=== PATIENT | female | born 1955 | race Caucasian/White ===

== ENCOUNTER 2016-06-11 12:02 | Emergency (ER) | payer OTHER ==
[~2016-06-11] VITALS: Ht 162.6 cm; Wt 97.7 kg
[~2016-06-11 12:02] MED LIST: ASPEC325 PO; BUPR-79 PO; CHOL100010 PO; CYM/30 PO; FRRG PO; GLC500 PO; IBUP-1105 PO; LISI40TA PO; PRENTAB26 PO
[2016-06-11 12:09] VITALS: TEMP 36.6; Ht 162.6 cm; Wt 97.7 kg
[2016-06-11] MEDS ORDERED: SODIUM CHLORIDE 0.9% 1000ML 1,000 ML IV STA (13:06)
[2016-06-11] MEDS ORDERED: ONDANSETRON INJ 2 MG/ML 2 ML VIAL IV STA (13:06)
[2016-06-11] MEDS ORDERED: HYDROmorphone INJ 1 MG/ML SYR IV STA (13:06)
[2016-06-11] MEDS ORDERED: KETOROLAC TROMETHAMINE 30 MG/ML VIAL IV STA (13:06)
[2016-06-11] MEDS ORDERED: CHOL100010 PO (13:15)
[2016-06-11] MEDS ORDERED: GLC/500 PO (13:15)
[2016-06-11 13:36] LABS: BASO % 0.3 %; BASO ABS # 0.03 K/uL (0-0.2); COMPLETE YES; EOS % 1.3 %; HEMATOCRIT 42.7 % (37-47); IG% 0.2 %; LYMPH % 24.2 %; LYMPH ABS # 2.38 K/uL (1.2-3.4); MEAN CELL VOLUME 83.4 fL (80-100); MEAN CORPUSCULAR HEMOGLOBIN 28.3 pg (25-34); MEAN PLATELET VOLUME 10.3 fL (7.4-10.4); MONO % 5.1 %; NEUT % 68.9 %; PLATELET COUNT 380 K/uL (130-400); RED BLOOD COUNT 5.12 M/uL (4.2-5.4); WHITE BLOOD COUNT 9.83 K/uL (4.8-10.8)
--- NOTE | 2016-06-11 13:36 | DIAGNOSTIC IMAGING REPORT ---
CHEST ONE VIEW PORTABLE CLINICAL HISTORY: epigastric pain COMPARISON STUDY: 09/11/2015 FINDINGS: The cardiac and mediastinal contours are normal. There is no evidence of focal pulmonary consolidation. There is no evidence of failure. No pleural effusions are visualized.[ There is no free intraperitoneal air. IMPRESSION: No active disease in the chest. Electronically signed by: Jose Willson M.D. 06/11/2016 1:35 PM Dictated Date/Time: 06/11/2016 1:34 PM
[2016-06-11 13:42] LABS: ALT/SGPT 23 U/L (12-78); AST/SGOT 11 U/L (15-37); BLOOD UREA NITROGEN 21 mg/dl (7-18); BUN/CREATININE RATIO 25.5 (10-20); CALCIUM 9.7 mg/dl (8.5-10.1); CARBON DIOXIDE 23 mmol/L (21-32); CHLORIDE 106 mmol/L (98-107); CREATININE 0.83 mg/dl (0.60-1.20); GLUCOSE 118 mg/dl (70-99); POTASSIUM 3.9 mmol/L (3.5-5.1); SODIUM 142 mmol/L (136-145)
[2016-06-11 13:48] LABS: ALKALINE PHOSPHATASE 103 U/L (45-117)
[2016-06-11] MEDS ORDERED: OPTIRAY 320 IV PRN (16:00)
--- NOTE | 2016-06-11 16:29 | DIAGNOSTIC IMAGING REPORT ---
CT ABD/PELVIS IV AND ORAL CONT CLINICAL HISTORY: epigastric pain COMPARISON STUDY: 11/16/2013 TECHNIQUE: Following the IV administration of 116 mL of Optiray-320, CT scan of the abdomen and pelvis was performed from the lung bases to the proximal femurs. Images are reviewed in the axial, sagittal, and coronal planes. IV contrast was administered without complication. CT DOSE: 1004.11 mGy.cm FINDINGS: Lower chest: The heart is enlarged. There are bibasal or groundglass opacities, likely atelectatic. Liver: The contrast-enhanced liver is normal in size, contour, and attenuation. There is no intrahepatic biliary ductal dilatation. The hepatic veins and portal veins are patent. Gallbladder: Surgically absent Spleen: Normal in size and attenuation. Pancreas: Unremarkable. Adrenal glands: Unremarkable. Kidneys: There is a 14 mm lower pole left renal cyst similar to the preceding study. There is no hydronephrosis. There is also a 5 mm cortical cyst involving the mid to upper pole of the left kidney Bowel: There are no transition zones indicate bowel obstruction. There are no findings to indicate acute appendicitis. There are no findings to indicate acute diverticulitis. There is mild fecal retention. There is moderate gastric antral wall thickening. Endoscopic follow-up is recommended. Peritoneum: There is no intraperitoneal free air or abdominal ascites. There is a tiny fat-containing ventral hernia Vasculature: The abdominal aorta is normal in course and caliber. Adenopathy: None. Pelvic viscera: The uterus is surgically absent. Skeletal structures: There is a total right hip arthroplasty. No destructive lesions are visualized. IMPRESSION: 1. No evidence of bowel obstruction. No evidence of free air 2. No evidence of acute appendicitis. No evidence of acute diverticulitis 3. Nonspecific gastric antral wall thickening. Given the history of epigastric pain, endoscopic follow-up should be considered in follow-up 4. Tiny fat-containing ventral hernia. Electronically signed by: Jose Willson M.D. 06/11/2016 4:28 PM Dictated Date/Time: 06/11/2016 4:22 PM
--- NOTE | 2016-06-11 16:31 | EMERGENCY ROOM VISIT NOTE ---
History Report prepared by Oanh: Yuri Hidalgo Under the Supervision of: Dr. Alisson Dwyer M.D. First contact with patient: 12:50 Chief Complaint: ABDOMINAL PAIN Stated Complaint: SEVERE STOMACH PAIN Nursing Triage Summary: Abd pain since Friday, off and on, nausea/vomiting. Denies diarrhea. History of Present Illness The patient is a 60 year old female who presents to the Emergency Room with complaints of persistent abdominal pain the past few mornings beginning about 2 days ago. She describes her pain as "hard and bloated", and notes it feels like when she would get gallbladder attacks. She reports having vomiting, and episodes of chest tightness which resolve on their own. She notes her pain is worsened with raising her legs up. The patient reports a history of a cholecystectomy, 2 C-sections, a hysterectomy, appendectomy, hip replacement, and 2 knee replacements. Source of History: patient Onset: about 2 days ago Position: abdomen Quality: other ("hard and bloated") Timing: other (persistent) Modifying Factors (Worsening): other (raising her legs up) Associated Symptoms: + chest pain (tightness episodes which self-resolve), + vomiting Review of Systems See HPI for pertinent positives & negatives. A total of 10 systems reviewed and were otherwise negative. Past Medical & Surgical Medical Problems: (1) Anxiety disorder (2) Benign essential hypertension (3) Body mass index 30+ - obesity (4) Depression (5) Diabetes mellitus (6) Gastroesophageal reflux disease (7) Hypercholesterolemia (8) Right Hip DJD (9) Sleep apnea Family History No pertinent family history stated. Social History Smoking Status: Former Smoker Marital Status: single Current/Historical Medications Scheduled Aspirin (Aspirin), 325 MG PO BID Bupropion (Wellbutrin Sr), 150 MG PO QAM Cholecalciferol (Vitamin D), 1,000 INTER.UNIT PO DAILY Duloxetine HCl (Cymbalta), 1 CAP PO QAM Ibuprofen (Ibuprofen), 600 MG PO TID Lisinopril (Zestril), 40 MG PO QAM Metformin Hcl (Glucophage), 500 MG PO BID Allergies Coded Allergies: Acetaminophen (Verified Allergy, Intermediate, nightmares, itching, 06/11/16 ) Morphine (Verified Allergy, Intermediate, itching, 06/11/16) Oxycodone (Verified Allergy, Intermediate, nightmares, itching, 06/11/16) Tramadol (Verified Allergy, Intermediate, itching, 06/11/16) Physical Exam Vital Signs Date Time Temp Pulse Resp B/P Pulse Ox O2 Delivery O2 Flow Rate FiO2 06/11/16 16:01 63 18 132/78 97 Room Air 06/11/16 14:52 61 18 127/69 98 Room Air 06/11/16 14:03 65 18 123/71 95 Room Air 06/11/16 12:09 36.6 80 18 145/88 94 Room Air Pain Rating (0-10): 8.0 Physical Exam CONSTITUTIONAL: Mild painful distress. HEENT: No icterus, moist mucous membranes NECK: No meningismus, trachea is midline. CARDIOVASCULAR: Regular rate, normal perfusion RESPIRATORY: Unlabored breathing. Clear to auscultation. GASTROINTESTINAL: Moderate epigastric tenderness. GENITOURINARY: No flank tenderness MUSCULOSKELETAL: Full range of motion NEUROLOGIC: No acute gross focal deficits. PSYCHIATRIC: Normal affect SKIN: Normal for ethnicity. Medical Decision & Procedures ER Provider Diagnostic Interpretation: Radiology results as stated below per my review and radiologist interpretation. CHEST ONE VIEW PORTABLE FINDINGS: The cardiac and mediastinal contours are normal. There is no evidence of focal pulmonary consolidation. There is no evidence of failure. No pleural effusions are visualized.[ There is no free intraperitoneal air. IMPRESSION: No active disease in the chest. Electronically signed by: Jose Willson M.D. 06/11/2016 1:35 PM Dictated Date/Time: 06/11/2016 1:[address] ABD/PELVIS IV AND ORAL CONT FINDINGS: Lower chest: The heart is enlarged. There are bibasal or groundglass opacities, likely atelectatic. Liver: The contrast-enhanced liver is normal in size, contour, and attenuation. There is no intrahepatic biliary ductal dilatation. The hepatic veins and portal veins are patent. Gallbladder: Surgically absent Spleen: Normal in size and attenuation. Pancreas: Unremarkable. Adrenal glands: Unremarkable. Kidneys: There is a 14 mm lower pole left renal cyst similar to the preceding study. There is no hydronephrosis. There is also a 5 mm cortical cyst involving the mid to upper pole of the left kidney Bowel: There are no transition zones indicate bowel obstruction. There are no findings to indicate acute appendicitis. There are no findings to indicate acute diverticulitis. There is mild fecal retention. There is moderate gastric antral wall thickening. Endoscopic follow-up is recommended. Peritoneum: There is no intraperitoneal free air or abdominal ascites. There is a tiny fat-containing ventral hernia Vasculature: The abdominal aorta is normal in course and caliber. Adenopathy: None. Pelvic viscera: The uterus is surgically absent. Skeletal structures: There is a total right hip arthroplasty. No destructive lesions are visualized. IMPRESSION: 1. No evidence of bowel obstruction. No evidence of free air 2. No evidence of acute appendicitis. No evidence of acute diverticulitis 3. Nonspecific gastric antral wall thickening. Given the history of epigastric pain, endoscopic follow-up should be considered in follow-up 4. Tiny fat-containing ventral hernia. Electronically signed by: Jose Willson M.D. 06/11/2016 4:28 PM Dictated Date/Time: 06/11/2016 4:22 PM Laboratory Results 06/11/16 12:30 Red Blood Count 5.12, Mean Corpuscular Volume 83.4, Mean Corpuscular Hemoglobin 28.3, Mean Corpuscular Hemoglobin Concent 34.0, Mean Platelet Volume 10.3, Neutrophils (%) (Auto) 68.9, Lymphocytes (%) (Auto) 24.2, Monocytes (%) (Auto) 5.1, Eosinophils (%) (Auto) 1.3, Basophils (%) (Auto) 0.3, Neutrophils # (Auto) 6.77, Lymphocytes # (Auto) 2.38, Monocytes # (Auto) 0.50, Eosinophils # (Auto) 0.13, Basophils # (Auto) 0.03 06/11/16 12:30 Test 06/11/16 12:30 White Blood Count 9.83 K/uL (4.8-10.8) Red Blood Count 5.12 M/uL (4.2-5.4) Hemoglobin 14.5 g/dL (12.0-16.0) Hematocrit 42.7 % (37-47) Mean Corpuscular Volume 83.4 fL (80-100) Mean Corpuscular Hemoglobin 28.3 pg (25-34) Mean Corpuscular Hemoglobin Concent 34.0 g/dl (32-36) Platelet Count 380 K/uL (130-400) Mean Platelet Volume 10.3 fL (7.4-10.4) Neutrophils (%) (Auto) 68.9 % Lymphocytes (%) (Auto) 24.2 % Monocytes (%) (Auto) 5.1 % Eosinophils (%) (Auto) 1.3 % Basophils (%) (Auto) 0.3 % Neutrophils # (Auto) 6.77 K/uL (1.4-6.5) Lymphocytes # (Auto) 2.38 K/uL (1.2-3.4) Monocytes # (Auto) 0.50 K/uL (0.11-0.59) Eosinophils # (Auto) 0.13 K/uL (0-0.5) Basophils # (Auto) 0.03 K/uL (0-0.2) RDW Standard Deviation 39.5 fL (36.4-46.3) RDW Coefficient of Variation 13.1 % (11.5-14.5) Immature Granulocyte % (Auto) 0.2 % Immature Granulocyte # (Auto) 0.02 K/uL (0.00-0.02) Anion Gap 13.0 mmol/L (3-11) Est Creatinine Clear Calc Drug Dose 79.8 ml/min Estimated GFR () 87.6 Estimated GFR (Non- 75.6 BUN/Creatinine Ratio 25.5 (10-20) Calcium Level 9.7 mg/dl (8.5-10.1) Magnesium Level 2.0 mg/dl (1.8-2.4) Total Bilirubin 0.4 mg/dl (0.2-1) Direct Bilirubin < 0.1 mg/dl (0-0.2) Aspartate Amino Transf (AST/SGOT) 11 U/L (15-37) Alanine Aminotransferase (ALT/SGPT) 23 U/L (12-78) Alkaline Phosphatase 103 U/L (45-117) Troponin I < 0.015 ng/ml (0-0.045) Total Protein 7.5 gm/dl (6.4-8.2) Albumin 4.1 gm/dl (3.4-5.0) Lipase 157 U/L (73-393) Labs reviewed by ED physician. Medications Administered Medications (Trade) Dose Ordered Sig/Corey Route Start Time Stop Time Status Last Admin Dose Admin Sodium Chloride (Nss 1000ml) 1,000 ml @ 0 mls/hr Q0M STAT IV 06/11/16 13:06 06/11/16 13:08 DC 06/11/16 13:25 999 MLS/HR Hydromorphone HCl (Dilaudid Inj) 1 mg PRN STAT IV 06/11/16 13:06 06/11/16 13:08 DC 06/11/16 13:27 1 MG Ketorolac Tromethamine (Toradol Inj) 15 mg NOW STAT IV 06/11/16 13:06 06/11/16 13:08 DC 06/11/16 13:27 15 MG Ondansetron HCl (Zofran Inj) 4 mg NOW STAT IV 06/11/16 13:06 06/11/16 13:08 DC 06/11/16 13:26 4 MG ECG Indication: abdominal pain Rate (beats per minute): 68 Rhythm: normal sinus Findings: no ectopy, other (normal axis) ED Course 1304: Past medical records reviewed. The patient was evaluated in room B5. A complete history and physical examination was performed. 1306: Ordered Zofran Inj 4 mg IV, Toradol Inj 15 mg IV, Dilaudid Inj 1 mg IV, and NSS 1,000 ml @ 0 mls/hr Wide Open IV. 1735: Upon reexamination the patient is doing well. I discussed results and treatment plan with the patient. She verbalizes agreement and understanding. The patient is ready for discharge. Medical Decision Differentials include pancreatitis, and obstruction. 60-year-old presents into the emergency room for evaluation of the predominant upper abdominal discomfort, especially at night. Evaluation negative for acute disease. She is advised take Pepcid daily and follow-up with her primary doctor and return emergency room for worsening worrisome symptoms. Impression Primary Impression: Abdominal pain Scribe Attestation The scribe's documentation has been prepared under my direction and personally reviewed by me in its entirety. I confirm that the note above accurately reflects all work, treatment, procedures, and medical decision making performed by me. Departure Information Dispostion Home / Self-Care Referrals Yoni Lara M.D. (PCP) Patient Instructions Abdominal Pain - [facility], My [facility] Additional Instructions Pepcid once daily. Follow-up with your doctor.
[2016-06-11 17:48] VITALS: BP 133/93; PULSE 68; O2SAT 92
== END 2016-06-11 17:49 | disposition home or self-care (01) ==
LOC: C.EDB 12:07
DX: R10.10 Upper abdominal pain, unspecified (principal); I10 Essential (primary) hypertension; E11.9 Type 2 diabetes mellitus without complications; E78.00 Pure hypercholesterolemia, unspecified; K21.9 Gastro-esophageal reflux disease without esophagitis; F32.9 Major depressive disorder, single episode, unspecified; F41.9 Anxiety disorder, unspecified; G47.30 Sleep apnea, unspecified; Z87.891 Personal history of nicotine dependence; Z79.82 Long term (current) use of aspirin; Z79.84 Long term (current) use of oral hypoglycemic drugs; Z79.899 Other long term (current) drug therapy; Z88.5 Allergy status to narcotic agent; Z88.6 Allergy status to analgesic agent; Z88.8 Allergy status to other drugs, medicaments and biological substances

== ENCOUNTER → 2016-07-09 | Outpatient (CLI) | payer OTHER ==
[~2016-07-09] MED LIST changes: -FRRG PO; +GLC/500 PO; -GLC500 PO; -PRENTAB26 PO
--- NOTE | 2016-07-10 07:39 | MAMMOGRAPHY REPORT ---
BILATERAL DIGITAL SCREENING MAMMOGRAM TOMOSYNTHESIS WITH CAD: 07/09/2016 CLINICAL HISTORY: Routine screening examination. TECHNIQUE: Breast tomosynthesis in addition to standard 2D mammography was performed. Current study was also evaluated with a Computer Aided Detection (CAD) system. COMPARISON: Comparison is made to exams dated: 10/18/2013 mammogram, 12/08/2009 mammogram - [facility], and 12/07/2008. BREAST COMPOSITION: There are scattered areas of fibroglandular density in both breasts. FINDINGS: There is stable nodularity throughout the breasts. Scattered stable benign-appearing roun ded punctate microcatheter indications. No new suspicious mass, architectural distortion or cluster of microcalcifications is seen. IMPRESSION: ACR BI-RADS CATEGORY 1: NEGATIVE There is no mammographic evidence of malignancy. A 1 year screening mammogram is recommended. The p atient will receive written notification of the results. Approximately 10% of breast cancers are not detected with mammography. A negative mammographic repor t should not delay biopsy if a clinically suggestive mass is present. Bibiana Whaley M.D. ay/:07/09/2016 17:25:01 Control Systems Eng: Meghan CRUMP(Chava)(Yolie), [facility] letter sent: Normal 1/2 BI-RADS Code: ACR BI-RADS Category 1: Negative
== END | disposition home or self-care (01) ==
LOC: C.MAMM 13:37
PROVIDERS: ATTEND Internal Medicine
DX: Z12.31 Encounter for screening mammogram for malignant neoplasm of breast (principal)

== ENCOUNTER → 2017-01-27 | Outpatient (CLI) | payer OTHER ==
[2017-01-27 13:25] LABS: BASO % 0.7 %; BASO ABS # 0.05 K/uL (0-0.2); COMPLETE YES; EOS % 2.8 %; HEMATOCRIT 41.2 % (37-47); IG% 0.1 %; LYMPH % 40.4 %; MEAN CELL VOLUME 84.6 fL (80-100); MEAN CORPUSCULAR HEMOGLOBIN 27.7 pg (25-34); MEAN CORPUSCULAR HGB CONC 32.8 g/dl (32-36); MEAN PLATELET VOLUME 10.2 fL (7.4-10.4); MONO % 6.3 %; NEUT % 49.7 %; PLATELET COUNT 401 K/uL (130-400); RED BLOOD COUNT 4.87 M/uL (4.2-5.4); WHITE BLOOD COUNT 7.42 K/uL (4.8-10.8)
[2017-01-27 13:54] LABS: ALB/GLOB RATIO 1.1 (0.9-2); ALKALINE PHOSPHATASE 99 U/L (45-117); ALT/SGPT 18 U/L (12-78); AST/SGOT 13 U/L (15-37); BLOOD UREA NITROGEN 28 mg/dl (7-18); BUN/CREATININE RATIO 28.9 (10-20); CALCIUM 9.3 mg/dl (8.5-10.1); CARBON DIOXIDE 26 mmol/L (21-32); CHLORIDE 106 mmol/L (98-107); CHOLESTEROL 221 mg/dl (0-200); CHOLESTEROL/HDL RATIO 5.4; CREATININE 0.97 mg/dl (0.60-1.20); GLUCOSE 109 mg/dl (70-99); HDL CHOLESTEROL 41 mg/dl; SODIUM 140 mmol/L (136-145)
[2017-01-27 14:05] LABS: LDL CHOLESTEROL CALCULATED 139 mg/dl; TRIGLYCERIDES 207 mg/dl (0-150); VERY LOW DENSITY LIPOPROT CALC 41 mg/dl
[2017-01-28 07:06] LABS: ESTIMATED AVERAGE GLUCOSE 114 mg/dl; HA1C FLAG Normal (Normal)
--- NOTE | 2017-02-04 07:13 | CODING QUERY MEDICAL NECESSITY ---
SUPPORTING DIAGNOSIS NEEDED Dr. Lara, A supporting diagnosis is required for the test/procedure performed on this patient in order for us to be reimbursed by the patient's insurance. Please provide a supporting diagnosis for the following test/procedure listed below next to the test name along with your signature. *If there is no additional diagnosis for this patient that would support the following test/procedure please document that below next to the test/procedure. Test(s)/Procedure(s) that require a supporting diagnosis: * 16940 GLYCATED HEMOGLOBIN DIAGNOSIS: DATE OF SERVICE: 01/27/17 Provider Signature: Date: Thank you Cali Lezama [facility] Information Management Once completed, please kindly fax back to [phone] For questions please call [phone]
== END | disposition home or self-care (01) ==
LOC: C.LABBC 09:32
PROVIDERS: ATTEND Internal Medicine
DX: E21.3 Hyperparathyroidism, unspecified (principal)

== ENCOUNTER → 2017-07-10 | Outpatient (CLI) | payer OTHER ==
--- NOTE | 2017-07-10 15:06 | MAMMOGRAPHY REPORT ---
BILATERAL DIGITAL SCREENING MAMMOGRAM TOMOSYNTHESIS WITH CAD: 07/10/2017 TECHNIQUE: Breast tomosynthesis in addition to standard 2D mammography was performed. Current study was also evaluated with a Computer Aided Detection (CAD) system. COMPARISON: Comparison is made to exams dated: 07/09/2016 mammogram, 07/05/2015 ultrasound, 07/05/2015 breann mogram, 10/18/2013 mammogram, 12/13/2009 mammogram, and 12/13/2009 ultrasound - [facility]. BREAST COMPOSITION: There are scattered areas of fibroglandular density in both breasts. FINDINGS: No suspicious masses, calcifications, or areas of architectural distortion are noted in ei ther breast. There has been no significant interval change compared to prior exams. IMPRESSION: ACR BI-RADS CATEGORY 1: NEGATIVE There is no mammographic evidence of malignancy. A 1 year screening mammogram is recommended. The pa tient will receive written notification of the results. Approximately 10% of breast cancers are not detected with mammography. A negative mammographic report should not delay biopsy if a clinically suggestive mass is present. Pili Ross M.D. ah/:07/10/2017 14:43:36 Spinning Doffer: Fátima NDIAYE)(Yolie), [facility] letter sent: Normal 1/2 BI-RADS Code: ACR BI-RADS Category 1: Negative
== END | disposition home or self-care (01) ==
LOC: C.MAMM 13:17
PROVIDERS: ATTEND Internal Medicine
DX: Z12.31 Encounter for screening mammogram for malignant neoplasm of breast (principal)

== ENCOUNTER → 2017-09-17 | Day surgery (SDC) | payer OTHER ==
[2017-08-26 16:23] VITALS: Ht 162.6 cm; Wt 95.5 kg
[~2017-09-17] VITALS: Ht 162.6 cm; Wt 95.5 kg
[~2017-09-17] MED LIST changes: +500ML BSS 0.3ML EPI 1:1000PF IRRIG ONE; +ACETAMINOPHEN 325 MG TAB PO PRN; +AMVISC PLUS 0.8ML SYRINGE INT OCU ONE; -ASPEC325 PO; +ATROPINE SULFATE 0.1 MG/ML 5ML SYR IV PRN; +ATV5X PO; +BSS FLUSH ONE; -CHOL100010 PO; +CHOL500015 PO; +ENDOCOAT 0.85ML SYRINGE INT OCU ONE; +EpINEphrine INJ 1MG/ML AMP 1 MG/ML AMP ONE; +LACTATED RINGER'S 1000ML 500 ML IV SCH; +LIDOCAINE 4% OP SOLN DROP CHARGE ONE; +LIDOCAINE 4% OP SOLN DROP CHARGE OPL SCH; +LIDOCAINE HCL 1% MPF 2 ML VIAL ONE; +MIDAZOLAM HCL 1 MG/ML 2ML VIAL ONE; +MIX: 4ML BSS 1ML EPI 1:1000 PF TOP ONE; +MOXIFLOXACIN OPH SOLN PER DROP CHARGE ONE; +POVIDONE-IODINE OP SOLN 30 ML BTL ONE; +PROPARACAINE 0.5% OP SOLN PER DROP CHARGE OPL SCH; +TOBRAMYCIN/DEXAMETHASONE OPH OINT PER APPLN CHARGE ONE
[2017-09-17] MEDS: PHENYLEPHRINE HCL 10% OP SOLN PER DROP CHARGE OPL SCH ×3 (06:38→06:48)
[2017-09-17] MEDS: TROPICAMIDE 1% OP SOLN PER DROP CHARGE OPL SCH ×3 (06:39→06:49)
[2017-09-17] MEDS: CYCLOPENTOLATE HCL 1% OP SOLN PER DROP CHARGE OPL SCH ×3 (06:40→06:50)
[2017-09-17] MEDS: MOXIFLOXACIN OPH SOLN PER DROP CHARGE OPL SCH ×3 (06:41→06:51)
--- NOTE | 2017-09-17 06:42 | History & Physical Bridge - SC ---
H&P Re-Evaluation Bridge Note: I have examined the patient, reviewed the History & Physical and in the interval since the performance of the History & Physical I have noted the following changes of clinical significance: No changes noted
--- NOTE | 2017-09-17 07:26 | [facility] Post Operative Brief Note ---
Immediate Operative Summary Operative Date September 17, 2017. Pre-Operative Diagnosis Cataract Left Eye Post-Operative Diagnosis Same Procedure(s) Performed Left Cataract Phacoemulsification With Intraocular Lens Implant Surgeon Dr. Andres Activities Attendant Surgeon(s) None Estimated Blood Loss 0ml Findings Consistent with Post-Op Diagnosis Specimens None Anesthesia Type MAC Complication(s) none Disposition Accompanied Pt To Recover: no Disposition:
--- NOTE | 2017-09-17 07:27 | [facility] Operative Report ---
Operative Report Date of Service September 17, 2017. Operative Report DATE OF OPERATION: 09/17/17 PREOPERATIVE DIAGNOSIS: Senile nuclear cataract, left eye POSTOPERATIVE DIAGNOSIS: Senile nuclear cataract, left eye PROCEDURE PERFORMED: Phacoemulsification with intraocular lens implantation, left eye SURGEON: Dr. Twan Andres ANESTHESIA: Topical with 1% intracameral lidocaine and monitored anesthesia care COMPLICATIONS: None DESCRIPTION OF PROCEDURE: After positively identifying the patient both verbally and by wristband in the preoperative area, the left eye was marked as the operative eye. The patient was then brought back to the operating room by the anesthesia and nursing staff where they were given a drop of Lidocaine and betadine into the operative eye. They were then sterilely prepped and draped in the standard fashion typical for ophthalmic surgery. Steri-strips were placed along the upper eyelids to keep the lashes back, and a lid speculum was placed into the operative eye. At this point, a documented time out was performed with members of the ophthalmology, nursing, and anesthesia staffs all agreeing upon the correct patient, correct location for surgery, correct procedure, and correct type and power of intraocular lens to be implanted. The microscope was then swung into position. First, a paracentesis wound was made using a sideport blade. Then, in sequence, 1% preservative-free lidocaine followed by Endocoat viscoelastic was injected into the anterior chamber. Next , the main incision was made with a keratome blade in triplanar fashion. A sharp cystotome was introduced into the eye and used to create a tear in the anterior capsule, which was directed into a continuous curvilinear capsulorrhexis using Utrata forceps. Hydrodissection was then performed with BSS on a flat-tip cannula. Next, the phacoemulsification handpiece was introduced into the eye and used to remove the nucleus in a [id number] fashion. This was done without complication and then the irrigation-aspiration handpiece was introduced into the eye and used to remove all remaining cortical and epinuclear material. Amvisc was then injected into the anterior chamber as well as into the capsular bag and using the lens injector system, an MX60 22.0 D lens, serial number [id number], and expiration date 05/2020 was injected into the capsular bag and rotated into the correct position. Next, the irrigation- aspiration handpiece was used to remove all remaining Amvisc. BSS was used to hydrate the main wound, and then BSS was injected into the paracentesis site to reach physiologic pressure and then the main wound was checked and found to be watertight. The patient was given drops of Vigamox and Tobradex ointment into the operative eye, and then the surrounding area was cleaned and dried. A clear plastic shield was placed over the eye and the patient was then sat up and taken from the operating room by the anesthesia staff having tolerated the procedure well and suffering no complications. DISPOSITION: The patient was returned to the recovery room in stable condition. I attest to the content of the Intraoperative Record and any orders documented therein. Any exceptions are noted below.
[2017-09-17 07:28] VITALS: TEMP 36.3
--- NOTE | 2017-09-17 07:28 | Discharge Instructions-SurgCtr ---
Discharge Instructions Date of Service September 17, 2017. Visit Reason for Visit: Cataract Left Eye Discharge Discharge Diagnosis / Problem: left cataract Discharge Goals Goal(s): Decrease discomfort, Improve function Medications Stopped Medications Name(s): metformin last dose 2 days ago Activity Recommendations Activity Limitations: as noted below Anesthesia . Post Anesthesia Instructions: If you have had General Anesthesia or IV Sedation: * Do not drive today. * Resume driving when surgeon permits. * Do not make important decisions or sign legal documents today. * Call surgeon for: 1. Temperature elevations greater than 101 degrees F. 2. Uncontrollable pain. 3. Excessive bleeding. 4. Persistent nausea and vomiting. 5. Medication intolerance (nausea, vomiting or rash). * For nausea and vomiting use only clear liquids such as: tea, soda, bouillon until nausea subsides, then gradually increase diet as tolerated. * If you have any concerns or questions, call your surgeon's office. If physician is unavailable and it is an emergency, call 911 or go to the nearest emergency room. . Instructions / Follow-Up Instructions / Follow-Up ACTIVITY RECOMMENDATIONS: * Light activities. * You may walk outside, read, watch television. * You may notice redness on the white part of the eye and some blurry vision - this is normal. MEDICATIONS: Resume previous medications unless instructed otherwise by your surgeon. Start all eye drops at 9:30 am today: * Eye drops (today): Prednisone - one drop in operative eye every 2 hours while awake Ofloxacin - one drop in operative eye every 2 hours while awake Prolensa - one drop in operative eye daily SPECIAL CARE INSTRUCTIONS: * Tape plastic shield over eye to sleep at night. Call your doctor at with any concerns or problems. FOLLOW UP VISIT: Follow-up with Dr Andres at [place] office as scheduled. Diet Recommendations Home Diet: no limitations Procedures Procedures Performed: Left Cataract Phacoemulsification With Intraocular Lens Implant Pending Studies Studies pending at discharge: no Medical Emergencies . Who to Call and When: Medical Emergencies: If at any time you feel your situation is an emergency, please call 911 immediately. . Non-Emergent Contact Non-Emergency issues call your: Surgeon . . "Provider Documentation" section prepared by Twan Andres. .
[2017-09-17 07:53] VITALS: BP 122/82; PULSE 62; O2SAT 97
--- NOTE | 2017-09-17 07:57 | Anesthesia Progress Nt - [facility] ---
Anesthesia Post Op Note Date & Time September 17, 2017 at 07:57 Vital Signs Pain Intensity: 1 Vital Signs Past 12 Hours Date Time Temp Pulse Resp B/P (MAP) Pulse Ox O2 Delivery O2 Flow Rate FiO2 09/17/17 07:53 62 18 122/82 (95) 97 Room Air 09/17/17 07:28 36.3 68 18 151/93 (112) 95 Room Air 09/17/17 06:28 36.8 76 18 143/92 (109) 95 Room Air Notes Mental Status: alert / awake / arousable, participated in evaluation Pt Amnestic to Procedure: Yes Nausea / Vomiting: adequately controlled Pain: adequately controlled Airway Patency, RR, SpO2: stable & adequate BP & HR: stable & adequate Hydration State: stable & adequate Anesthetic Complications: no major complications apparent
== END | disposition home or self-care (01) ==
LOC: X.SURG 06:06
PROVIDERS: ATTEND Ophthalmology
DX: H25.12 Age-related nuclear cataract, left eye (principal); E11.9 Type 2 diabetes mellitus without complications; I10 Essential (primary) hypertension; F41.9 Anxiety disorder, unspecified; G47.33 Obstructive sleep apnea (adult) (pediatric); E66.9 Obesity, unspecified; Z88.5 Allergy status to narcotic agent; Z99.89 Dependence on other enabling machines and devices; Z79.84 Long term (current) use of oral hypoglycemic drugs

== ENCOUNTER 2019-12-20 03:11 | Inpatient (IN) ==
[2019-12-20] MEDS ORDERED: fentaNYL citrate 100 MCG/2 ML VIAL IV STA ×2 (03:40→05:15)
[2019-12-20 03:48] LABS: Appearance Urine Clear (Clear); Bilirubin Urine Negative (Negative); Blood Urine Trace (Negative); Color Urine Yellow; Glucose Urine UA Negative (Negative); Ketones Urine Negative (Negative); Leukocyte Esterase Urine Negative (Negative); Nitrite Urine Negative (Negative); Protein Urine Negative (Negative); Specific Gravity Urine 1.025 (1.000-1.030); Urobilinogen Urine Negative (Negative); pH Urine 5.5 (4.5-7.5)
[2019-12-20 03:56] LABS: Bacteria Urine Negative (Negative); RBC Urine 0-4 /hpf (0-4); WBC Urine 0-5 /hpf (0-5)
[2019-12-20 03:57] LABS: Basophils # (auto) 0.03 K/uL (0-0.2); Basophils % (auto) 0.2 %; Eosinophils # (auto) 0.25 K/uL (0-0.5); Eosinophils % (auto) 2.1 %; Hematocrit (blood only) 39.7 % (37-47); Hemoglobin 12.7 g/dL (12.0-16.0); Immature Granulocytes # (auto) 0.03 K/uL (0.00-0.02); Immature Granulocytes % (auto) 0.2 %; Lymphocytes # (auto) 4.03 K/uL (1.2-3.4); Lymphocytes % (auto) 33.3 %; Mean Corpuscular Hemoglobin 26.7 pg (25-34); Mean Corpuscular Volume 83.6 fL (80-100); Mean Platelet Volume 9.4 fL (7.4-10.4); Monocytes # (auto) 0.75 K/uL (0.11-0.59); Monocytes % (auto) 6.2 %; Neutrophils # (auto) 7.02 K/uL (1.4-6.5); Platelet Count 328 K/uL (130-400); RDW Coefficient of Variation 13.2 % (11.5-14.5); RDW Standard Deviation 39.8 fL (36.4-46.3); Red Blood Count 4.75 M/uL (4.2-5.4); White Blood Count 12.11 K/uL (4.8-10.8)
[2019-12-20 04:15] LABS: Albumin Level 3.2 gm/dl (3.4-5.0); BUN Creatinine Ratio 24.5 (10-20); Calcium 9.2 mg/dl (8.5-10.1); Creatinine Clr Calc Pharmacy 77.9 ml/min; Est GFR (African American) 86.4; Est GFR (Non-African American) 74.6; Potassium 3.7 mmol/L (3.5-5.1)
[2019-12-20 04:17] LABS: Albumin Globulin Ratio 0.9 (0.9-2); Bilirubin,Total 0.3 mg/dl (0.2-1); Globulin 3.6 gm/dl (2.5-4.0); Total Protein 6.8 gm/dl (6.4-8.2)
[2019-12-20] MEDS ORDERED: IOVERSOL 100ml IV ONE (04:34)
[2019-12-20] MEDS ORDERED: SODIUM CHLORIDE 0.9% 500 ML IV ONE (05:15)
--- NOTE | 2019-12-20 05:22 | Emergency Department Note ---
Impression & Plan Acute pancreatitis ED Provider Note NAME: ANANTH BRAVO AGE: 64 SEX: F ARRIVES VIA: Walk-In INFORMANT: Patient ED PROVIDER(S): Phuong Murray DO CHIEF COMPLAINT: Epigastric abdominal pain and back pain PLAN: Disposition: Evaluation by the [facility] hospitalist service Condition: Stable MEDICAL DECISION MAKING: This is a 64-year-old female patient who presents to the emergency department complaining of abdominal pain that started around 7 PM this evening. The patient tried taking ibuprofen and Ativan but the pain would not subside. Laboratory studies revealed an elevated lipase. She went for CT scan of the abdomen/pelvis which revealed inflammatory changes around the head of the pancreas concerning for acute pancreatitis. The patient had recently undergone a colonoscopy. The patient got only minimal relief of her discomfort with IV fentanyl. She then received IV Dilaudid. I discussed the case with [facility] Hospitalist group and they will evaluate for further management. Triage Nursing notes reviewed and agree them. Prior medical records reviewed Vital Signs: reviewed and remarkable for hypertension Differential diagnosis: Hypokalemia, pancreatitis, colitis, small bowel obstruction, ulcer disease ER treatment provided: IV fentanyl x2 IV normal saline IV Dilaudid Laboratory studies: See below Imaging studies: As per stat rad CT abdomen and pelvis with contrast Subtle fat stranding surrounding the pancreatic head could represent acute pancreatitis. Status post cholecystectomy. No significant biliary distention. No gastric wall thickening. Appendix is not identified. No bowel wall thickening or obstruction. No free air or free fluid. Hepatic steatosis. Nonenhancing subcentimeter cyst in the upper left kidney is probably benign. No hydronephrosis. Status post hysterectomy. No adnexal masses. HPI: 64/F arrives for evaluation of abdominal pain. The patient developed upper abdominal pain that seemed to wrap around both sides of her abdomen into her back beneath her shoulder blades around 7 PM this evening. She denies any nausea, vomiting, fever, chills or cough. The patient was unable to sleep and could not get comfortable. The patient states that she feels as if she had a similar episode 16 years ago that was related to hypokalemia and possible pancreatic issues. Patient does describe having excessive bowel movements since she had a colonoscopy last week. ROS: See above HPI for pertinent positives & negatives. A total of 10 systems reviewed and were otherwise negative. PAST MEDICAL HISTORY:MS, prediabetes PAST SURGICAL HISTORY:Cholecystectomy, , hysterectomy FAMILY HISTORY:See Below SOCIAL HISTORY:See Below HOME MEDICATIONS:See list ALLERGIES:See list VITALS:See Below PHYSICAL EXAMINATION: HEENT: Head - normocephalic and atraumatic Pupils are equal, round, and reactive to light. Extraocular eye muscles are intact, and sclera are anicteric. Nose - moist nasal mucosa without discharge. Mouth - moist buccal mucosa. Oropharynx is nonerythematous and there is no tonsillar exudate or edema noted. Neck: Supple; no JVD, nuchal rigidity, cervical lymphadenopathy, or auscultated bruits. Heart: Regular rate and rhythm. There is a normal S1 and S2 with no murmurs, clicks, or gallops appreciated. Lungs: Clear to auscultation bilaterally with no wheezes, rales, or rhonchi. Abdomen: Soft, completely nontender, nondistended, with good bowel sounds. There are no palpable pulsatile masses or hepatosplenomegaly. There is no guarding, rigidity, or rebound noted. Extremities: No evidence of cyanosis, clubbing, or edema. There are easily palpable peripheral pulses. Skin: warm and dry with good turgor and no rashes. ED COURSE: Times/Reassessments: 0325 the patient was evaluated in room C8. A complete history and physical was performed. An order was placed for continuous cardiac monitoring. The patient was in a normal sinus rhythm at a rate of 74. Laboratory studies were drawn as above. The patient was given 50 mcg of IV fentanyl. This gave her some relief of her discomfort. 0420:I reviewed results of the laboratory studies with the patient. She went for CT scan of her abdomen/pelvis. Continue to complain of discomfort in the abdomen and was given a second dose of IV fentanyl. 0540: Patient was rechecked at this time and was still quite uncomfortable and was given 1 mg of IV Dilaudid for pain and the case was discussed with the [facility] Hospitalist. Phuong Murray DO Past Med/Surg History Medical History (Updated 12/20/19 @ 07:43 by Phuong Murray DO) Carpal tunnel syndrome Chronic migraine without aura with status migrainosus, not intractable Constipation Degenerative joint disease of right hip Depression (11/03/10) Diabetes mellitus (11/03/10) Fibromyalgia Goiter diffuse, nontoxic H/O esophageal reflux Hyperlipidemia Hyperparathyroidism Hypertension Major depressive disorder, recurrent episode Multiple sclerosis Nausea and vomiting after administration of anesthetic agent Neuropathy Numbness Sleep apnea (11/03/10) cpap ordered, doesn't use Small vessel disease, cerebrovascular Tubular adenoma of colon Vitamin D deficiency Surgical History History of appendectomy History of arthroscopy of left knee History of arthroscopy of right knee History of bilateral cataract extraction History of breast biopsy benign History of section x2 History of cholecystectomy History of colonoscopy with polypectomy History of orthopedic surgery left anterior tibial tubercleplasty History of tonsillectomy History of tooth extraction History of total abdominal hysterectomy and bilateral salpingo-oophorectomy History of total left hip replacement History of total left knee replacement (TKR) History of total right knee replacement (TKR) Status post biopsy of thyroid gland benign goiter Family History Mother Alzheimer disease Father Liver cancer Kidney malignancy Coronary artery stenosis Hypertension Daughter Epilepsy Grandmother (Paternal) Family hx of colon cancer Grandfather (Maternal) Family history of esophageal cancer Other No family history of adverse response to anesthesia Denies family history of Ovarian cancer Prostate cancer Breast cancer Lung cancer Colorectal cancer Social History Smoking Status: Current some day smoker Age Started Using Tobacco: 14; Age Quit Using Tobacco: 33; packs per day: 0.5; Cigarettes Per Day: a couple cigarettes a week; Second Hand Exposure: Yes (parents smoked); Hx Alcohol Use: No Hx Substance Use: No Preferred Language: Nicaraguan Communication Ability: Effective Hearing Ability: Normal Wrapping Machine Operator Required: No Beliefs That Will Affect Care: None marital status: Single Current Living Situation: Parent current occupational status: disabled Feels Safe at Home: Yes Dental Care, Regularly: Yes Seatbelt Use: always Sunscreen Use: No Allergies Allergies Allergy/AdvReac Type Severity Reaction Status Date / Time morphine Allergy Intermediate itching Verified 12/20/19 07:11 oxycodone Allergy Intermediate nightmares, Verified 12/20/19 07:11 itching tramadol Allergy Intermediate itching Verified 12/20/19 07:11 Home Meds Home Medications Medication Instructions Recorded Confirmed cholecalciferol (vitamin D3) 125 5,000 units PO QAM #90 cap 03/14/19 12/20/19 mcg (5,000 unit) capsule cyanocobalamin (vitamin B-12) 1,000 mcg PO QAM #90 tab 03/14/19 12/20/19 1,000 mcg tablet aspirin [Adult Low Dose Aspirin] 81 mg PO QAM 12/20/19 12/20/19 duloxetine 30 mg PO QAM 12/20/19 12/20/19 ibuprofen [Advil] 400 mg PO UD 12/20/19 12/20/19 lisinopril 40 mg PO QAM 12/20/19 12/20/19 Previous Rx's Medication Instructions Recorded bupropion HCl 150 mg 24 hr tablet, 150 mg PO QAM #30 tab 10/21/19 extended release lorazepam 0.5 mg tablet 0.5 mg PO TID PRN #90 tab 11/15/19 Results & Data (ED) Vital Signs Vital Signs - 24 hr 12/20/19 03:20 12/20/19 03:58 12/20/19 04:26 Temperature 36.6 C Temperature Source Oral Pulse Rate 74 Pulse Rate [Bilateral Apical] 71 69 Respiratory Rate 20 20 20 Respiratory Effort / Characteristics Non-Labored Spontaneous Non-Labored Respiratory Depth Normal Normal Blood Pressure 181/99 H Blood Pressure [Left Arm] 153/109 H 146/84 H Blood Pressure Mean 126 Blood Pressure Mean [Left Arm] 123 104 Pulse Oximetry 97 92 93 Oxygen Delivery Method Room Air Room Air Room Air Sepsis Recent Fever Within 48 Hours No Sepsis New/Unexplained Change in Mental Status No Sepsis Action Taken by Nursing No Action Required 12/20/19 05:25 12/20/19 06:00 12/20/19 07:30 Temperature Temperature Source Pulse Rate Pulse Rate [Bilateral Apical] 66 66 67 Respiratory Rate 20 18 18 Respiratory Effort / Characteristics Respiratory Depth Blood Pressure Blood Pressure [Left Arm] 183/76 H 176/91 H 160/84 H Blood Pressure Mean Blood Pressure Mean [Left Arm] 111 119 109 Pulse Oximetry 93 98 93 Oxygen Delivery Method Room Air Room Air Room Air Sepsis Recent Fever Within 48 Hours Sepsis New/Unexplained Change in Mental Status Sepsis Action Taken by Nursing Laboratory Data Result diagrams: 12/20/19 03:40 12/20/19 03:40 Lab Results 12/20/19 12/20/19 12/20/19 Range/Units 03:28 03:40 03:40 WBC 12.11 H (4.8-10.8) K/uL RBC 4.75 (4.2-5.4) M/uL Hgb 12.7 (12.0-16.0) g/dL Hct 39.7 (37-47) % MCV 83.6 (80-100) fL MCH 26.7 (25-34) pg MCHC 32.0 (32-36) g/dL RDW Std Deviation 39.8 (36.4-46.3) fL RDW Coeff of Jorgito 13.2 (11.5-14.5) % Plt Count 328 (130-400) K/uL MPV 9.4 (7.4-10.4) fL Immature Gran % (Auto) 0.2 % Neut % (Auto) 58.0 % Lymph % (Auto) 33.3 % Price % (Auto) 6.2 % Eos % (Auto) 2.1 % Baso % (Auto) 0.2 % Neut # (Auto) 7.02 H (1.4-6.5) K/uL Lymph # (Auto) 4.03 H (1.2-3.4) K/uL Price # (Auto) 0.75 H (0.11-0.59) K/uL Eos # (Auto) 0.25 (0-0.5) K/uL Baso # (Auto) 0.03 (0-0.2) K/uL Immature Gran # (Auto) 0.03 H (0.00-0.02) K/uL Sodium 139 (136-145) mmol/L Potassium 3.7 (3.5-5.1) mmol/L Chloride 107 (98-107) mmol/L Carbon Dioxide 27 (21-32) mmol/L Anion Gap 5.0 (3-11) BUN 20 H (7-18) mg/dl Creatinine 0.82 (0.6-1.2) mg/dl Est Cr Clr Drug Dosing 77.9 ml/min Est GFR ( Amer) 86.4 Est GFR (Non-Af Amer) 74.6 BUN/Creatinine Ratio 24.5 H (10-20) Glucose 140 H (70-99) mg/dl Calcium 9.2 (8.5-10.1) mg/dl Total Bilirubin 0.3 (0.2-1) mg/dl AST 9 L (15-37) U/L ALT 24 (12-78) U/L Alkaline Phosphatase 104 (45-117) U/L Total Protein 6.8 (6.4-8.2) gm/dl Albumin 3.2 L (3.4-5.0) gm/dl Globulin 3.6 (2.5-4.0) gm/dl Albumin/Globulin Ratio 0.9 (0.9-2) Triglycerides (0-150) mg/dl Cholesterol (0-200) mg/dl LDL Cholesterol, Calc mg/dl VLDL Cholesterol, Calc mg/dl HDL Cholesterol mg/dl Cholesterol/HDL Ratio Lipase 613 H (73-393) U/L Urine Color Yellow Urine Appearance Clear (Clear) Urine pH 5.5 (4.5-7.5) Ur Specific [place] 1.025 (1.000-1.030) Urine Protein Negative (Negative) Urine Glucose (UA) Negative (Negative) Urine Ketones Negative (Negative) Urine Blood Trace H (Negative) Urine Nitrite Negative (Negative) Urine Bilirubin Negative (Negative) Urine Urobilinogen Negative (Negative) Ur Leukocyte Esterase Negative (Negative) Urine RBC 0-4 (0-4) /hpf Urine WBC 0-5 (0-5) /hpf Ur Epithelial Cells 5-10 H (0-5) /lpf Urine Bacteria Negative (Negative) 12/20/19 Range/Units 03:40 WBC (4.8-10.8) K/uL RBC (4.2-5.4) M/uL Hgb (12.0-16.0) g/dL Hct (37-47) % MCV (80-100) fL MCH (25-34) pg MCHC (32-36) g/dL RDW Std Deviation (36.4-46.3) fL RDW Coeff of Jorgito (11.5-14.5) % Plt Count (130-400) K/uL MPV (7.4-10.4) fL Immature Gran % (Auto) % Neut % (Auto) % Lymph % (Auto) % Price % (Auto) % Eos % (Auto) % Baso % (Auto) % Neut # (Auto) (1.4-6.5) K/uL Lymph # (Auto) (1.2-3.4) K/uL Price # (Auto) (0.11-0.59) K/uL Eos # (Auto) (0-0.5) K/uL Baso # (Auto) (0-0.2) K/uL Immature Gran # (Auto) (0.00-0.02) K/uL Sodium (136-145) mmol/L Potassium (3.5-5.1) mmol/L Chloride (98-107) mmol/L Carbon Dioxide (21-32) mmol/L Anion Gap (3-11) BUN (7-18) mg/dl Creatinine (0.6-1.2) mg/dl Est Cr Clr Drug Dosing ml/min Est GFR ( Amer) Est GFR (Non-Af Amer) BUN/Creatinine Ratio (10-20) Glucose (70-99) mg/dl Calcium (8.5-10.1) mg/dl Total Bilirubin (0.2-1) mg/dl AST (15-37) U/L ALT (12-78) U/L Alkaline Phosphatase (45-117) U/L Total Protein (6.4-8.2) gm/dl Albumin (3.4-5.0) gm/dl Globulin (2.5-4.0) gm/dl Albumin/Globulin Ratio (0.9-2) Triglycerides 218 H (0-150) mg/dl Cholesterol 205 H (0-200) mg/dl LDL Cholesterol, Calc 124 mg/dl VLDL Cholesterol, Calc 44 mg/dl HDL Cholesterol 37 mg/dl Cholesterol/HDL Ratio 6 Lipase (73-393) U/L Urine Color Urine Appearance (Clear) Urine pH (4.5-7.5) Ur Specific [place] (1.000-1.030) Urine Protein (Negative) Urine Glucose (UA) (Negative) Urine Ketones (Negative) Urine Blood (Negative) Urine Nitrite (Negative) Urine Bilirubin (Negative) Urine Urobilinogen (Negative) Ur Leukocyte Esterase (Negative) Urine RBC (0-4) /hpf Urine WBC (0-5) /hpf Ur Epithelial Cells (0-5) /lpf Urine Bacteria (Negative) Administered Medications Famotidine 20 mg/ Syringe 5 mls @ 2.5 mls/min IV Q12H BERENICE Stop: 01/19/20 05:59 Last Admin: 12/20/19 06:26 Dose: 2.5 mls/min Documented by: [id number] Discontinued Medications Famotidine (Famotidine 20mg/5ml Iv Push) Confirm Administered Dose 20 mg IV .STK-MED ONE Stop: 12/20/19 06:19 Last Admin: 12/20/19 06:28 Dose: Not Given Documented by: [id number] Fentanyl Citrate (Fentanyl Citrate 100 Mcg/2 Ml Vial) 50 mcg IV NOW STA Stop: 12/20/19 03:41 Last Admin: 12/20/19 03:54 Dose: 50 mcg Documented by: [id number] Fentanyl Citrate (Fentanyl Citrate 100 Mcg/2 Ml Vial) 50 mcg IV NOW STA Stop: 12/20/19 05:16 Last Admin: 12/20/19 05:22 Dose: 50 mcg Documented by: [id number] Hydromorphone HCl (Hydromorphone Inj 1 Mg/Ml Syringe) 1 mg IV NOW STA Stop: 12/20/19 05:48 Last Admin: 12/20/19 05:59 Dose: 1 mg Documented by: [id number] Sodium Chloride (Nss) 500 mls @ 999 mls/hr IV .Q31M ONE Stop: 12/20/19 05:45 Last Infusion: 12/20/19 05:48 Dose: 0 mls/hr Documented by: [id number] Admin: 12/20/19 05:22 Dose: 999 mls/hr Documented by: [id number] Sodium Chloride (Nss 1000ml) 1,000 mls @ 999 mls/hr IV .Q1H1M ONE Stop: 12/20/19 07:08 Last Infusion: 12/20/19 07:25 Dose: 0 mls/hr Documented by: [id number] Admin: 12/20/19 06:24 Dose: 999 mls/hr Documented by: [id number] Ioversol (Ioversol 100ml) 93 ml IV ONCE ONE Stop: 12/20/19 04:35 Last Admin: 12/20/19 04:35 Dose: 93 ml Documented by: [id number] Discharge Plan Visit Data Chief Complaint: Abdominal Pain Stated Complaint: SEVERE ABDOMINAL PAIN TO BACK UNDER SHOULDER BLADE ED Provider: Phuong Murray Discharge Problem: Acute pancreatitis Forms Stand Alone Forms: My [facility] Prescriptions Prescriptions: No Action lorazepam 0.5 mg tablet 0.5 mg PO TID PRN (Reason: anxiety) Qty: 90 RF: 0 cholecalciferol (vitamin D3) 5,000 unit capsule 5,000 units PO QAM Qty: 90 RF: 0 cyanocobalamin (vitamin B-12) 1,000 mcg tablet 1,000 mcg PO QAM Qty: 90 RF: 0 bupropion HCl 150 mg tablet extended release 24 hr 150 mg PO QAM Qty: 30 RF: 2 ibuprofen [Advil] 200 mg Tablet 400 mg PO UD RF: 0 aspirin [Adult Low Dose Aspirin] 81 mg tablet,delayed release (DR/EC) 81 mg PO QAM RF: 0 lisinopril 40 mg tablet 40 mg PO QAM RF: 0 duloxetine 30 mg capsule,delayed release(DR/EC) 30 mg PO QAM RF: 0 Discharge Problem: Acute pancreatitis Qualifiers: Pancreatitis type: unspecified pancreatitis type Acute pancreatitis complication: no infection or necrosis Qualified Code(s): K85.90 - Acute pancreatitis without necrosis or infection, unspecified
[2019-12-20] MEDS ORDERED: HYDROmorphone INJ 1 MG/ML SYRINGE IV STA (05:47)
[2019-12-20] MEDS ORDERED: FAMOTIDINE 20 MG in SYRINGE 3 ML IV SCH (06:00)
[2019-12-20] MEDS ORDERED: SODIUM CHLORIDE 0.9% 1000ML 1,000 ML IV ONE (06:08)
--- NOTE | 2019-12-20 06:19 | History & Physical Report ---
Date of Service December 20, 2019 Assessment & Plan (1) Pancreatitis: Lipase is [address] abdomen pelvis consistent with pancreatic head area pancreatitis. Admit to nonmonitored bed. N.p.o. except essential medications Follow serial CBC with differential, chemistry profile and lipase levels. Has received 500 mils normal saline in the ED. We will give additional 1 L normal saline bolus IV now. Maintenance fluids normal saline plus KCl 20 mEq at 100 mils per hour Famotidine 20 mg IV every 12 hours Zofran 4 mg IV every 6 hours PRN Consult her event staff member Dr. Freeman Present on Admission?: Yes (2) Depression with anxiety: Depression with anxiety/fibromyalgia- Continue bupropion and duloxetine. Present on Admission?: Yes (3) Fibromyalgia: See above Present on Admission?: Yes (4) Hyperlipidemia: Order a fasting lipid panel Present on Admission?: Yes (5) Hypertension: Hold lisinopril and aspirin Present on Admission?: Yes History of Present Illness Chief Complaint: The patient presents to the emergency department with the acute onset of severe epigastric abdominal and back pain Primary Care Provider: Yoni Lara MD The patient is a 64-year-old female with a past medical history including depression with anxiety, solitary thyroid nodule, carpal tunnel syndrome, diabetes mellitus, fibromyalgia, hyperlipidemia, hyperparathyroidism, hypertension, multiple sclerosis, sleep apnea, small vessel cerebrovascular disease and vitamin D deficiency. She presents to the emergency department with acute onset of several hours of severe abdominal and back pain accompanied by nausea without vomiting. She of note did have a colonoscopy performed on 12/14/2019. She has not had any questionable food intake, has not had any recent travels or sick exposures. Allergies Allergy/AdvReac Type Severity Reaction Status Date / Time morphine Allergy Intermediate itching Verified 12/14/19 08:02 oxycodone Allergy Intermediate nightmares, Verified 12/14/19 08:02 itching tramadol Allergy Intermediate itching Verified 12/14/19 08:02 Home Medications Home Medications Medication Instructions Recorded Confirmed Type cholecalciferol (vitamin D3) 125 5,000 units PO QAM #90 cap 03/14/19 12/14/19 History mcg (5,000 unit) capsule cyanocobalamin (vitamin B-12) 1,000 mcg PO QAM #90 tab 03/14/19 12/14/19 History 1,000 mcg tablet duloxetine 30 mg capsule,delayed 30 mg PO DAILY #90 cap 06/25/19 12/14/19 Rx release aspirin 81 mg tablet,delayed 81 mg PO DAILY #30 tab 08/30/19 12/14/19 Rx release bupropion HCl 150 mg 24 hr tablet, 150 mg PO QAM #30 tab 10/21/19 12/14/19 Rx extended release lisinopril 40 mg tablet 40 mg PO DAILY #90 tab 10/21/19 12/14/19 Rx lorazepam 0.5 mg tablet 0.5 mg PO TID PRN #90 tab 11/15/19 12/14/19 Rx Past Med/Surg History Medical History (Updated 12/20/19 @ 06:16 by Dhiraj Williamson MD) Carpal tunnel syndrome Chronic migraine without aura with status migrainosus, not intractable Constipation Degenerative joint disease of right hip Depression (11/03/10) Diabetes mellitus (11/03/10) Fibromyalgia Goiter diffuse, nontoxic H/O esophageal reflux Hyperlipidemia Hyperparathyroidism Hypertension Major depressive disorder, recurrent episode Multiple sclerosis Nausea and vomiting after administration of anesthetic agent Neuropathy Numbness Sleep apnea (11/03/10) cpap ordered, doesn't use Small vessel disease, cerebrovascular Tubular adenoma of colon Vitamin D deficiency Surgical History History of appendectomy History of arthroscopy of left knee History of arthroscopy of right knee History of bilateral cataract extraction History of breast biopsy benign History of section x2 History of cholecystectomy History of colonoscopy with polypectomy History of orthopedic surgery left anterior tibial tubercleplasty History of tonsillectomy History of tooth extraction History of total abdominal hysterectomy and bilateral salpingo-oophorectomy History of total left hip replacement History of total left knee replacement (TKR) History of total right knee replacement (TKR) Status post biopsy of thyroid gland benign goiter Family History Mother Alzheimer disease Father Liver cancer Kidney malignancy Coronary artery stenosis Hypertension Daughter Epilepsy Grandmother (Paternal) Family hx of colon cancer Grandfather (Maternal) Family history of esophageal cancer Other No family history of adverse response to anesthesia Denies family history of Ovarian cancer Prostate cancer Breast cancer Lung cancer Colorectal cancer Social History (Reviewed 10/21/19 @ 08:19 by RAMON Martinez Smoking Status: Current some day smoker Age Started Using Tobacco: 14; Age Quit Using Tobacco: 33; packs per day: 0.5; Cigarettes Per Day: a couple cigarettes a week; Second Hand Exposure: Yes (parents smoked); Hx Alcohol Use: No Hx Substance Use: No Preferred Language: Belgian Communication Ability: Effective Hearing Ability: Normal Insurance Verifier Required: No Beliefs That Will Affect Care: None marital status: Single Current Living Situation: Parent current occupational status: disabled Feels Safe at Home: Yes Dental Care, Regularly: Yes Seatbelt Use: always Sunscreen Use: No Review of Systems Review of Systems: The patient denies chest pain, palpitations, shortness of breath, dyspnea on exertion, cough, lower extremity swelling, sore throat, fevers, chills, sweats, vomiting, diarrhea , constipation, blood in urine or stool, dysuria, urinary frequency or urgency, lightheadedness, dizziness, headache, memory loss, loss of consciousness, rash, abnormal bruising or bleeding, imbalance, focal or generalized weakness, numbness or tingling in arms or legs, generalized arthralgias or myalgias, neck pain, or night sweats. The review of systems is otherwise negative other than for that already noted above, and at least 10 systems have been reviewed. Physical Exam Physical Exam: The patient is awake, alert and oriented 3, well developed and well nourished, normocephalic and atraumatic, lying in bed and in moderate distress secondary to abdominal and back pain. HEENT--PERRL, EOMI, mucous membranes and oropharynx dry. Neck--supple. No JVD. No bruits. Thyroid normal, trachea midline, no adenopathy. Heart--normal S1 and S2. No murmurs, rubs or gallops. Lungs--clear bilaterally, no respiratory distress, no accessory muscle use. Abdomen--normal bowel sounds and soft. Nondistended. Generalized abdominal discomfort and pain below rib cage. Extremities--no cyanosis or clubbing. No edema. Dermatologic--normal skin turgor, normal color, no abnormal lymph nodes, no rash. Neurologic--cranial nerves II through XII grossly intact. Rheumatologic--normal range of motion. Psychiatric--normal affect. Results & Data Results & Data ([facility]) Vital Signs (Past 12 Hours) Vital Signs Temp Pulse Pulse Resp BP BP Pulse Ox 12/20/19 06:00 66 18 176/91 H 98 12/20/19 05:25 66 20 183/76 H 93 12/20/19 04:26 69 20 146/84 H 93 12/20/19 03:58 71 20 153/109 H 92 12/20/19 03:20 97.9 F 74 20 181/99 H 97 Laboratory Results Laboratory Results WBC 12.11 K/uL (4.8-10.8) H 12/20/19 03:40 RBC 4.75 M/uL (4.2-5.4) 12/20/19 03:40 Hgb 12.7 g/dL (12.0-16.0) 12/20/19 03:40 Hct 39.7 % (37-47) 12/20/19 03:40 MCV 83.6 fL (80-100) 12/20/19 03:40 MCH 26.7 pg (25-34) 12/20/19 03:40 MCHC 32.0 g/dL (32-36) 12/20/19 03:40 RDW Std Deviation 39.8 fL (36.4-46.3) 12/20/19 03:40 RDW Coeff of Jorgito 13.2 % (11.5-14.5) 12/20/19 03:40 Plt Count 328 K/uL (130-400) 12/20/19 03:40 MPV 9.4 fL (7.4-10.4) 12/20/19 03:40 Immature Gran % (Auto) 0.2 % 12/20/19 03:40 Neut % (Auto) 58.0 % 12/20/19 03:40 Lymph % (Auto) 33.3 % 12/20/19 03:40 [place] % (Auto) 6.2 % 12/20/19 03:40 Eos % (Auto) 2.1 % 12/20/19 03:40 Baso % (Auto) 0.2 % 12/20/19 03:40 Neut # (Auto) 7.02 K/uL (1.4-6.5) H 12/20/19 03:40 Lymph # (Auto) 4.03 K/uL (1.2-3.4) H 12/20/19 03:40 [place] # (Auto) 0.75 K/uL (0.11-0.59) H 12/20/19 03:40 Eos # (Auto) 0.25 K/uL (0-0.5) 12/20/19 03:40 Baso # (Auto) 0.03 K/uL (0-0.2) 12/20/19 03:40 Immature Gran # (Auto) 0.03 K/uL (0.00-0.02) H 12/20/19 03:40 Sodium 139 mmol/L (136-145) 12/20/19 03:40 Potassium 3.7 mmol/L (3.5-5.1) 12/20/19 03:40 Chloride 107 mmol/L (98-107) 12/20/19 03:40 Carbon Dioxide 27 mmol/L (21-32) 12/20/19 03:40 Anion Gap 5.0 (3-11) 12/20/19 03:40 BUN 20 mg/dl (7-18) H 12/20/19 03:40 Creatinine 0.82 mg/dl (0.6-1.2) 12/20/19 03:40 Est Cr Clr Drug Dosing 77.9 ml/min 12/20/19 03:40 Est GFR ( Amer) 86.4 12/20/19 03:40 Est GFR (Non-Af Amer) 74.6 12/20/19 03:40 BUN/Creatinine Ratio 24.5 (10-20) H 12/20/19 03:40 Glucose 140 mg/dl (70-99) H 12/20/19 03:40 Calcium 9.2 mg/dl (8.5-10.1) 12/20/19 03:40 Total Bilirubin 0.3 mg/dl (0.2-1) 12/20/19 03:40 AST 9 U/L (15-37) L 12/20/19 03:40 ALT 24 U/L (12-78) 12/20/19 03:40 Alkaline Phosphatase 104 U/L (45-117) 12/20/19 03:40 Total Protein 6.8 gm/dl (6.4-8.2) 12/20/19 03:40 Albumin 3.2 gm/dl (3.4-5.0) L 12/20/19 03:40 Globulin 3.6 gm/dl (2.5-4.0) 12/20/19 03:40 Albumin/Globulin Ratio 0.9 (0.9-2) 12/20/19 03:40 Lipase 613 U/L (73-393) H 12/20/19 03:40 Urine Color Yellow 12/20/19 03:28 Urine Appearance Clear (Clear) 12/20/19 03:28 Urine pH 5.5 (4.5-7.5) 12/20/19 03:28 Ur Specific [place] 1.025 (1.000-1.030) 12/20/19 03:28 Urine Protein Negative (Negative) 12/20/19 03:28 Urine Glucose (UA) Negative (Negative) 12/20/19 03:28 Urine Ketones Negative (Negative) 12/20/19 03:28 Urine Blood Trace (Negative) H 12/20/19 03:28 Urine Nitrite Negative (Negative) 12/20/19 03:28 Urine Bilirubin Negative (Negative) 12/20/19 03:28 Urine Urobilinogen Negative (Negative) 12/20/19 03:28 Ur Leukocyte Esterase Negative (Negative) 12/20/19 03:28 Urine RBC 0-4 /hpf (0-4) 12/20/19 03:28 Urine WBC 0-5 /hpf (0-5) 12/20/19 03:28 Ur Epithelial Cells 5-10 /lpf (0-5) H 12/20/19 03:28 Urine Bacteria Negative (Negative) 12/20/19 03:28 Diagnostic Findings [facility] Patient: ANANTH BRAVO (Female) : 51 Status: ER Date: 12/20/19 04:39 Room #: History: EPIGASTRIC ABDOMINAL PAINS EVALUATE PANCREAS, APPENDIX PRESENT Slices: [phone] Priors: Tech: Julissa Barksdale @ [phone] Exams: CT ABDOMEN & PELVIS With Contrast Contrast: IV Amt: 93ML OF OPTIRAY 320 Accession Numbers: [id number] Preliminary Findings Only See Final Report For Complete Findings CT ABDOMEN & PELVIS With Contrast: Subtle fat stranding surrounding the pancreatic head could represent acute pancreatitis. Status post cholecystectomy. No significant biliary dilatation. No gastric wall thickening. Appendix is not identified. No bowel wall thickening or obstruction. No free air or free fluid. Hepatic steatosis. Nonenhancing subcentimeter cyst in the upper left kidney is probably benign. No hydronephrosis. Status post hysterectomy. No adnexal masses. Radiologist: Sharona Faust MD Study ready at 04:45 and initial results transmitted at 05:15 *This report constitutes a preliminary interpretation only. Non-acute findings felt to be unrelated to the clinical presentation may not be discussed in this report. The study will be interpreted and a final report will be generated by the local Radiologist the following shift. To reach the the [facility] radiology dep artment call [phone]. If a discrepancy is found between the preliminary and final interpretations of this study, please notify us via our Client Portal at [email or web address] under QA Exams.You can also fax this report with a description of the discrepancy, or include the final report, to our daytime fax number [phone].If faxing, please indicate the severity of discrepancy using one of the following categories: [ ] 1 - Agree/Informational [ ] 2 - Unlikely to Affect Management [ ] 3 - Possible Eventual Change of Management [ ] 4 - Probable Immediate Change of Management For all other patient related information, please fax us at [phone]. [id number] Code Status & VTE Plan Code Status Full code VTE Prophylaxis Plan VTE Prophylaxis will be ordered: Yes PG Care Time/CCT Total # of Minutes Spent Total Time Spent with Patient: Total time spent is greater than 50% in coordination of care (as documented) at patient's floor/unit and/or counseling patient: Coding Level of Care Code 47652 Initial Inpt Care Lvl 3 Diagnoses Pancreatitis K85.90 Depression with anxiety F41.8 Fibromyalgia M79.7 Hyperlipidemia E78.5 Hypertension I10
[2019-12-20] MEDS: FAMOTIDINE 20MG/5ML IV PUSH IV ONE ×2 (06:24→06:28)
[2019-12-20 07:42] LABS: Chol HDL Ratio 6; Cholesterol 205 mg/dl (0-200); HDL Cholesterol 37 mg/dl; LDL Cholesterol Calculated 124 mg/dl; Triglycerides 218 mg/dl (0-150); VLDL Cholesterol 44 mg/dl
--- NOTE | 2019-12-20 07:46 | CT Scan Report ---
CT abd pelvis IV con only CLINICAL HISTORY: Epigastric abdominal pain COMPARISON STUDY: 06/11/2016 TECHNIQUE: Patient was scanned in a dynamic helical fashion during intravenous administration of 93 c c of Optiray 320 A dose lowering technique was utilized adhering to the principles of ALARA. CT DOSE: 1384.48 mGy.cm FINDINGS: Lower chest: There are mild dependent atelectatic changes Liver: There is hepatic steatosis. There is focal fat adjacent to gallbladder fossa. No suspicious he patic masses are visualized. The hepatic and portal veins appear patent Gallbladder: Surgically absent Spleen: Normal in size and attenuation. Pancreas: There is a very subtle fat stranding surrounding the pancreatic head. Minimal interstitial pancreatitis cannot be excluded. Correlation with appropriate biochemical markers is recommended. The re is no pancreatic ductal dilatation Adrenal glands: Unremarkable. Kidneys: There is a 9 mm left renal cortical cyst. No solid renal masses are visualized. There is no hydronephrosis. Bowel: There are no transition zones indicate bowel obstruction. There is no evidence of acute divert iculitis. The appendix is not visualized with certainty. There are no secondary findings to indicate acute appendicitis. Peritoneum: There is no intraperitoneal free air or abdominal ascites. Vasculature: The abdominal aorta is normal in course and caliber. Adenopathy: None. Pelvic viscera: The uterus is surgically absent Skeletal structures: There is a right hip arthroplasty. IMPRESSION: 1. No evidence of bowel obstruction. No evidence of free air 2. No evidence of acute diverticulitis. No evidence of acute appendicitis 3. Very subtle fat stranding surrounding the pancreatic head. This could represent subtle interstitia l pancreatitis. Correlation with appropriate biochemical markers is recommended 4. Surgically absent gallbladder and uterus 5. Hepatic steatosis ACT 112: Negative or not required by law. Electronically signed by: Jose Willson M.D. 12/20/2019 7:44 AM
[2019-12-20] MEDS ORDERED: ACETAMINOPHEN 325 MG TAB PO PRN (08:55)
[2019-12-20] MEDS ORDERED: ONDANSETRON INJ 2 MG/ML 2 ML VIAL IV PRN (08:55)
[2019-12-20] MEDS: HYDROmorphone INJ 0.5 MG/0.5 ML SYR IV PRN ×2 (09:11→12:17)
[2019-12-20] MEDS ORDERED: NSS + 20MEQ KCL 20 MEQ/1,000 ML BAG IV SCH (09:15)
--- NOTE | 2019-12-20 09:22 | Gastrointestinal Consultation ---
Date of Consultation December 20, 2019 Assessment & Plan (1) Acute pancreatitis: -Supportive care per primary team -IV fluids -Anti-emetics -Pain control -US to r/o sludge/stones Thank you for allowing us to participate in the care of this patient. If you should have any further questions or concerns, do not hesitate to contact us at extension [phone] or [phone]. Supervising Physician Co-Signing Physician Notes I personally evaluated the patient and agree with the findings as documented by Giuliana Wayne, OUSMANE Exam: abd: soft, moderate epigastric tenderness, nd still with abdominal pains and a headache, continue with NPO, aggressive IV hydration. once symptoms improve can re-introduce low residue diet. If no other etiology for her pancreatitis found, may need to consider EGD to rule out any ampullary etiology/obstruction. History of Present Illness Reason for Consultation: Pancreatitis Attending Physician: Dhiraj Williamson MD History of Present Illness Patient is a 64 yo female who presents to [facility] with epigastric abdominal pain. In the ED she was noted to have pancreatitis on CT scan after her lipase was noted to be 613. It appears her total cholesterol is only mildly elevated at 205, however her triglycerides are elevated at 218. She does not take a statin as an outpatient. No recent alcohol use. She reports a sudden onset of her epigastric pain over a period of several hours. The pain radiates to her back. It did not improve with Ibuprofen which is what prompted her to seek ED evaluation. LFTs are unremarkable including AST, ALT, T Bili. . She is currently NPO on IV fluids and pain medications. She is s/p cholecystectomy. No family history of pancreatic issues. Patient had a colonoscopy 1 week ago. History of MS. Allergies Allergy/AdvReac Type Severity Reaction Status Date / Time morphine Allergy Intermediate itching Verified 12/20/19 07:11 oxycodone Allergy Intermediate nightmares, Verified 12/20/19 07:11 itching tramadol Allergy Intermediate itching Verified 12/20/19 07:11 Home Medications Home Medications Medication Instructions Recorded Confirmed Type cholecalciferol (vitamin D3) 125 5,000 units PO QAM #90 cap 03/14/19 12/20/19 History mcg (5,000 unit) capsule cyanocobalamin (vitamin B-12) 1,000 mcg PO QAM #90 tab 03/14/19 12/20/19 History 1,000 mcg tablet bupropion HCl 150 mg 24 hr tablet, 150 mg PO QAM #30 tab 10/21/19 12/20/19 Rx extended release lorazepam 0.5 mg tablet 0.5 mg PO TID PRN #90 tab 11/15/19 12/20/19 Rx aspirin [Adult Low Dose Aspirin] 81 mg PO QAM 12/20/19 12/20/19 History duloxetine 30 mg PO QAM 12/20/19 12/20/19 History ibuprofen [Advil] 400 mg PO UD 12/20/19 12/20/19 History lisinopril 40 mg PO QAM 12/20/19 12/20/19 History Patient History Medical History (Updated 12/20/19 @ 07:43 by Phuong Murray DO) Carpal tunnel syndrome Chronic migraine without aura with status migrainosus, not intractable Constipation Degenerative joint disease of right hip Depression (11/03/10) Diabetes mellitus (11/03/10) Fibromyalgia Goiter diffuse, nontoxic H/O esophageal reflux Hyperlipidemia Hyperparathyroidism Hypertension Major depressive disorder, recurrent episode Multiple sclerosis Nausea and vomiting after administration of anesthetic agent Neuropathy Numbness Sleep apnea (11/03/10) cpap ordered, doesn't use Small vessel disease, cerebrovascular Tubular adenoma of colon Vitamin D deficiency Surgical History History of appendectomy History of arthroscopy of left knee History of arthroscopy of right knee History of bilateral cataract extraction History of breast biopsy benign History of section x2 History of cholecystectomy History of colonoscopy with polypectomy History of orthopedic surgery left anterior tibial tubercleplasty History of tonsillectomy History of tooth extraction History of total abdominal hysterectomy and bilateral salpingo-oophorectomy History of total left hip replacement History of total left knee replacement (TKR) History of total right knee replacement (TKR) Status post biopsy of thyroid gland benign goiter Family History Mother Alzheimer disease Father Liver cancer Kidney malignancy Coronary artery stenosis Hypertension Daughter Epilepsy Grandmother (Paternal) Family hx of colon cancer Grandfather (Maternal) Family history of esophageal cancer Other No family history of adverse response to anesthesia Denies family history of Ovarian cancer Prostate cancer Breast cancer Lung cancer Colorectal cancer Social History Smoking Status: Light tobacco smoker Age Started Using Tobacco: 14; Age Quit Using Tobacco: 33; packs per day: 0.5; Cigarettes Per Day: 2-3/week; Second Hand Exposure: Yes (daughter's home); Hx Alcohol Use: Yes Alcohol type: wine Hx Substance Use: No Preferred Language: Greenlandic Communication Ability: Effective Hearing Ability: Normal Junior Software Developer Required: No Beliefs That Will Affect Care: None marital status: Single Current Living Situation: Parent Current Living Situation Comment: with father current occupational status: disabled Feels Safe at Home: Yes Dental Care, Regularly: Yes Seatbelt Use: always Sunscreen Use: No Review of Systems Constitutional: no fever and no chills Eyes: no problem reported Respiratory: no cough and no dyspnea Cardiovascular: no chest pain Gastrointestinal: + abdominal pain (improving), + nausea and + vomiting; no blood in stools Musculoskeletal: no joint pain Integumentary: no rash Neurologic: no dizziness Psychiatric: no problem reported Physical Exam Constitutional: WD/WN, vitals as above Eyes: PERRL, conjunctivae normal, anicteric sclerae Neck: normal visual inspection Respiratory: normal respiratory effort Cardiovascular: Rate/Rhythm: regular rate Extremities: no edema Gastrointestinal (Abdomen): Inspection/Auscultation: abdomen normal to inspection Percussion/Palpation: + abdomen tender and abdomen soft Musculoskeletal: Head/Neck/Chest: normocephalic Skin: no rashes, warm and dry Psychiatric: Orientation: alert and oriented x 3 Results & Data ([facility]) Vital Signs (Past 12 Hours) Vital Signs Temp Pulse Pulse Resp BP BP Pulse Ox 12/20/19 07:30 67 18 160/84 H 93 12/20/19 06:00 66 18 176/91 H 98 12/20/19 05:25 66 20 183/76 H 93 12/20/19 04:26 69 20 146/84 H 93 12/20/19 03:58 71 20 153/109 H 92 12/20/19 03:20 36.6 C 74 20 181/99 H 97 PG Care Time/CCT Total # of Minutes Spent Total Time Spent with Patient: Total time spent is greater than 50% in coordination of care (as documented) at patient's floor/unit and/or counseling patient: Coding Level of Care Code 65630 Inpt Consult Level 4 Diagnoses Acute pancreatitis K85.90 Acute pancreatitis complication: no infection or necrosis Pancreatitis type: unspecified pancreatitis type (1) Acute pancreatitis Acute pancreatitis complication: no infection or necrosis Pancreatitis type: unspecified pancreatitis type Qualified Code(s): K85.90 - Acute pancreatitis without necrosis or infection, unspecified
[2019-12-20] MEDS: BuPROPion XL 150 MG TABCR PO SCH (10:15)
[2019-12-20] MEDS: DULOXETINE HCL 30 MG CAP PO SCH (10:15)
--- NOTE | 2019-12-20 11:17 | Ultrasound Report ---
ULTRASOUND RIGHT UPPER QUADRANT ABDOMEN CLINICAL HISTORY: Pancreatitis. COMPARISON STUDY: Abdominal CT performed the same day 12/20/2019. TECHNIQUE: Real-time, grayscale, and color flow sonography of the right upper quadrant of the abdomen was performed. Images are reviewed in the transverse and longitudinal planes. FINDINGS: Liver: The liver is enlarged and demonstrates heterogeneously increased echotexture consistent with h epatic steatosis. Note that this degrades acoustic penetration of the liver. There is no intrahepatic biliary ductal dilatation. The main portal vein is patent. Gallbladder: The gallbladder is surgically absent. The common bile duct measures up to 0.6 cm in diam eter. Pancreas: Visualized portions of the pancreatic head and body are normal in appearance. The splenic v ein is patent. Right kidney: Survey images of the right kidney demonstrate normal size and echotexture. There is no hydronephrosis. Ascites: None. IMPRESSION: 1. No acute sonographic abnormality is identified in right upper quadrant noting status post cholecys tectomy. 2. Hepatomegaly and hepatic steatosis. ACT 112: Negative or not required by law. Electronically signed by: Aries Gifford M.D. 12/20/2019 11:15 AM
[2019-12-20] MEDS: SODIUM CHLORIDE 0.9% 1000ML 1,000 ML IV SCH ×2 (14:01→19:00)
--- NOTE | 2019-12-20 17:08 | Medical Student Progress Note ---
Date of Service December 20, 2019 Assessment & Plan (1) Acute pancreatitis: 64F, Hx of DM, HTN, HLD, hyperPTH, cholecystectomy admitted for management of acute pancreatitis (1) acute pancreatitis lipase elevated @ 613 CT findings of fat stranding at pancreatic head hx of cholecystectomy TG elevated @ 218 but not high enough to be etiology for pancreatitis Hx of hyperPTH but normal Ca no recent change in medications or diet no concern of alcohol abuse etio likely idiopathic pancreatitis or possible biliary sludge or small gallstone not imaged on CT given 1.5L total NS in ED continue maintainence fluid NS @ 200mL/hr keep NPO until tomorrow start low fat soft diet tomorrow if pt able to tolerate without n/v CMP + Mg qAM to monitor Ca, Mg levels CBC with Diff to monitor WBC continue zofran 4mg IV q6H PRN for n/v d/c famotidine monitor i/o (2) pain control continue hydromorphone 0.5mg IV q3h PRN acetaminophen 650mg PO q4h PRN for pain/fever Toradol 15mg IV q6H PRN if pain not controlled with acetaminophen (3) MDD, anxiety, fibromyalgia continue home bupropion, duloxetine (4) HTN permissive HTN up to 180/110 during admission for pancreatitis hold home lisinopril, aspirin for now (5) hyperglycemia insulin sliding scale (6) HLD consider starting statin outpatient following discharge given elevated TG and total chol Acute pancreatitis complication: no infection or necrosis Pancreatitis type: unspecified pancreatitis type Qualified Code(s): K85.90 - Acute pancreatitis without necrosis or infection, unspecified Admission and Anticipated Discharge Date Admission Date: December 20, 2019 Supervising Attestation I personally examined the patient and verified all mendiola points of history and exam, discussed case, and agree with decision making with Selma Meredith MS3. feeling better pain control than before - still on and off but much better controlled. was quite intense. vitals noted nad heent nc at mmm breathing unlabored no accessory muscles good effort skin no rashes no pallor or icterus neuro no focal deficits abd soft nd mod epigastric ttp no guarding no rebound acute idiopathic pancreatitis - no EtOH, no GB (and nothing appearing obstructive on labs/imaging), TGs mildly elevated but certainly not in range to be culprit (likewise w A1c). fluids, supportive care, appreciate GI thoughts on ?EGD to eval ampulla DVT proph - lovenox Subjective Ms. Rebeca Franks is a 64y/o F with Hx of DM, HLD, HTN, hyperparathyroidism, cholecystectomy who presented to the ED early this AM with acute onset of abdominal pain radiating to her back, and admitted for management of acute pancreatitis confirmed with elevated lipase and CT findings. She does not endorse any recent changes in medications or lifestyle. She was probed regarding alcohol consumption but states her last drink was several months ago. After IVF and pain medications, she is still having some pain rated 7/10 which is an improvement from her first presentation in the ED. She feels drowsy with pain meds but current level of pain is tolerable and does not wish for any increase in pain meds. She is feeling bloated / "clogged up", but otherwise she does not endorse n/v, no chest pain, no SOB. Review of Systems Review of Systems: All systems reviewed & are unremarkable except as noted in Subjective Physical Exam Physical Exam: constitutional: afebrile, NAD, alert and oriented cardio: regular rate, systolic murmur 2/6, no rubs/gallops, normal s1 s2 pulm: LCA bilat abd: obese abdomen, no periumbilical/flank bruising, normal BS, soft, slight distension, some TTP @ LUQ and RUQ but no rebound, no guarding Results & Data ([facility]) Vital Signs (Past 12 Hours) Vital Signs Temp Pulse Pulse Resp BP Pulse Ox 12/20/19 15:20 36.8 C 74 16 134/76 92 12/20/19 14:11 135/86 12/20/19 12:15 36.7 C 68 14 168/83 H 96 12/20/19 12:00 14 12/20/19 07:30 67 18 160/84 H 93 12/20/19 06:00 66 18 176/91 H 98 12/20/19 05:25 66 20 183/76 H 93 Laboratory Results Laboratory Results WBC 12.11 K/uL (4.8-10.8) H 12/20/19 03:40 RBC 4.75 M/uL (4.2-5.4) 12/20/19 03:40 Hgb 12.7 g/dL (12.0-16.0) 12/20/19 03:40 Hct 39.7 % (37-47) 12/20/19 03:40 MCV 83.6 fL (80-100) 12/20/19 03:40 MCH 26.7 pg (25-34) 12/20/19 03:40 MCHC 32.0 g/dL (32-36) 12/20/19 03:40 RDW Std Deviation 39.8 fL (36.4-46.3) 12/20/19 03:40 RDW Coeff of [place] 13.2 % (11.5-14.5) 12/20/19 03:40 Plt Count 328 K/uL (130-400) 12/20/19 03:40 MPV 9.4 fL (7.4-10.4) 12/20/19 03:40 Immature Gran % (Auto) 0.2 % 12/20/19 03:40 Neut % (Auto) 58.0 % 12/20/19 03:40 Lymph % (Auto) 33.3 % 12/20/19 03:40 [place] % (Auto) 6.2 % 12/20/19 03:40 Eos % (Auto) 2.1 % 12/20/19 03:40 Baso % (Auto) 0.2 % 12/20/19 03:40 Neut # (Auto) 7.02 K/uL (1.4-6.5) H 12/20/19 03:40 Lymph # (Auto) 4.03 K/uL (1.2-3.4) H 12/20/19 03:40 [place] # (Auto) 0.75 K/uL (0.11-0.59) H 12/20/19 03:40 Eos # (Auto) 0.25 K/uL (0-0.5) 12/20/19 03:40 Baso # (Auto) 0.03 K/uL (0-0.2) 12/20/19 03:40 Immature Gran # (Auto) 0.03 K/uL (0.00-0.02) H 12/20/19 03:40 Sodium 139 mmol/L (136-145) 12/20/19 03:40 Potassium 3.7 mmol/L (3.5-5.1) 12/20/19 03:40 Chloride 107 mmol/L (98-107) 12/20/19 03:40 Carbon Dioxide 27 mmol/L (21-32) 12/20/19 03:40 Anion Gap 5.0 (3-11) 12/20/19 03:40 BUN 20 mg/dl (7-18) H 12/20/19 03:40 Creatinine 0.82 mg/dl (0.6-1.2) 12/20/19 03:40 Est Cr Clr Drug Dosing 77.9 ml/min 12/20/19 03:40 Est GFR ( Amer) 86.4 12/20/19 03:40 Est GFR (Non-Af Amer) 74.6 12/20/19 03:40 BUN/Creatinine Ratio 24.5 (10-20) H 12/20/19 03:40 Glucose 140 mg/dl (70-99) H 12/20/19 03:40 Calcium 9.2 mg/dl (8.5-10.1) 12/20/19 03:40 Total Bilirubin 0.3 mg/dl (0.2-1) 12/20/19 03:40 AST 9 U/L (15-37) L 12/20/19 03:40 ALT 24 U/L (12-78) 12/20/19 03:40 Alkaline Phosphatase 104 U/L (45-117) 12/20/19 03:40 Total Protein 6.8 gm/dl (6.4-8.2) 12/20/19 03:40 Albumin 3.2 gm/dl (3.4-5.0) L 12/20/19 03:40 Globulin 3.6 gm/dl (2.5-4.0) 12/20/19 03:40 Albumin/Globulin Ratio 0.9 (0.9-2) 12/20/19 03:40 Lipase 613 U/L (73-393) H 12/20/19 03:40 Urine Color Yellow 12/20/19 03:28 Urine Appearance Clear (Clear) 12/20/19 03:28 Urine pH 5.5 (4.5-7.5) 12/20/19 03:28 Ur Specific [place] 1.025 (1.000-1.030) 12/20/19 03:28 Urine Protein Negative (Negative) 12/20/19 03:28 Urine Glucose (UA) Negative (Negative) 12/20/19 03:28 Urine Ketones Negative (Negative) 12/20/19 03:28 Urine Blood Trace (Negative) H 12/20/19 03:28 Urine Nitrite Negative (Negative) 12/20/19 03:28 Urine Bilirubin Negative (Negative) 12/20/19 03:28 Urine Urobilinogen Negative (Negative) 12/20/19 03:28 Ur Leukocyte Esterase Negative (Negative) 12/20/19 03:28 Urine RBC 0-4 /hpf (0-4) 12/20/19 03:28 Urine WBC 0-5 /hpf (0-5) 12/20/19 03:28 Ur Epithelial Cells 5-10 /lpf (0-5) H 12/20/19 03:28 Urine Bacteria Negative (Negative) 12/20/19 03:28 Diagnostic Findings [facility] Patient: REBECA FRANKS (Female) : 51 Status: ER Date: 12/20/19 04:39 Room #: History: EPIGASTRIC ABDOMINAL PAINS EVALUATE PANCREAS, APPENDIX PRESENT Slices: [phone] Priors: Tech: Shamir Julissa @ [phone] Exams: CT ABDOMEN & PELVIS With Contrast Contrast: IV Amt: 93ML OF OPTIRAY 320 Accession Numbers: [id number] Preliminary Findings Only See Final Report For Complete Findings CT ABDOMEN & PELVIS With Contrast: Subtle fat stranding surrounding the pancreatic head could represent acute pancreatitis. Status post cholecystectomy. No significant biliary dilatation. No gastric wall thickening. Appendix is not identified. No bowel wall thickening or obstruction. No free air or free fluid. Hepatic steatosis. Nonenhancing subcentimeter cyst in the upper left kidney is probably benign. No hydronephrosis. Status post hysterectomy. No adnexal masses. Radiologist: Sharona Faust MD Study ready at 04:45 and initial results transmitted at 05:15 *This report constitutes a preliminary interpretation only. Non-acute findings felt to be unrelated to the clinical presentation may not be discussed in this report. The study will be interpreted and a final report will be generated by the local Radiologist the following shift. To reach the hospital radiology department call [phone]. If a discrepancy is found between the preliminary and final interpretations of this study, please notify us via our Client Portal at [email or web address] under QA Exams.You can also fax this report with a description of the discrepancy, or include the final report, to our daytime fax number [phone].If faxing, please indicate the severity of discrepancy using one of the following categories: [ ] 1 - Agree/Informational [ ] 2 - Unlikely to Affect Management [ ] 3 - Possible Eventual Change of Management [ ] 4 - Probable Immediate Change of Management For all other patient related information, please fax us at [phone]. [id number]
[2019-12-20] MEDS ORDERED: CARBOHYDRATES FOR HYPOGLYCEMIA PO PRN (17:15)
[2019-12-20] MEDS ORDERED: Nursing to Pharmacy Communication SCH (17:15)
[2019-12-20] MEDS ORDERED: DEXTROSE 50% 50 ML SYRINGE IV PRN (17:15)
[2019-12-20] MEDS ORDERED: GLUCOSE 10 TABS/TUBE PO PRN (17:15)
[2019-12-20] MEDS ORDERED: GLUCOSE 40% GEL 15 GM TUBE PO PRN (17:15)
[2019-12-20] MEDS ORDERED: INSULIN ASPART 100 UNITS/ML 3 ML PEN SC SCH (17:15)
[2019-12-20] MEDS ORDERED: GLUCAGON FOR INJ 1 MG VIAL SQ PRN (17:15)
[2019-12-20] MEDS: KETOROLAC TROMETHAMINE 15 MG/ML VIAL IV PRN (17:55)
[2019-12-20] MEDS: INSULIN ASPART 100 UNITS/ML 3 ML PEN SC SCH (18:24)
[2019-12-21] MEDS: INSULIN ASPART 100 UNITS/ML 3 ML PEN SC SCH ×5 (00:05→21:48)
[2019-12-21] MEDS: SODIUM CHLORIDE 0.9% 1000ML 1,000 ML IV SCH ×4 (00:33→17:03)
[2019-12-21 05:31] LABS: Basophils # (auto) 0.01 K/uL (0-0.2); Basophils % (auto) 0.1 %; Eosinophils # (auto) 0.21 K/uL (0-0.5); Eosinophils % (auto) 2.5 %; Hematocrit (blood only) 38.5 % (37-47); Hemoglobin 12.7 g/dL (12.0-16.0); Immature Granulocytes # (auto) 0.02 K/uL (0.00-0.02); Immature Granulocytes % (auto) 0.2 %; Lymphocytes % (auto) 39.1 %; Mean Corpuscular Hemoglobin 28.1 pg (25-34); Mean Corpuscular Volume 85.2 fL (80-100); Mean Platelet Volume 9.5 fL (7.4-10.4); Monocytes # (auto) 0.33 K/uL (0.11-0.59); Monocytes % (auto) 3.9 %; Neutrophils # (auto) 4.56 K/uL (1.4-6.5); Neutrophils % (auto) 54.2 %; Platelet Count 315 K/uL (130-400); RDW Coefficient of Variation 13.2 % (11.5-14.5); RDW Standard Deviation 41.1 fL (36.4-46.3); Red Blood Count 4.52 M/uL (4.2-5.4); White Blood Count 8.43 K/uL (4.8-10.8)
[2019-12-21 05:56] LABS: BUN Creatinine Ratio 11.6 (10-20); Calcium 8.1 mg/dl (8.5-10.1); Creatinine Clr Calc Pharmacy 90.4 ml/min; Est GFR (African American) 101.1; Est GFR (Non-African American) 87.3
[2019-12-21] MEDS: KETOROLAC TROMETHAMINE 15 MG/ML VIAL IV PRN ×2 (08:41→21:20)
[2019-12-21] MEDS: DULOXETINE HCL 30 MG CAP PO SCH (08:42)
[2019-12-21] MEDS: CYANOCOBALAMIN 500 MCG TABLET (VITAMIN B-12) PO SCH (08:42)
--- NOTE | 2019-12-21 09:06 | Gastroenterology Progress Note ---
Date of Service December 21, 2019 Assessment & Plan (1) Acute pancreatitis: 1. As pain has improved, can advance diet to low residue as tolerated. 2. Continue supportive care with IV fluids/antiemetics/analgesics. Admission and Anticipated Discharge Date Admission Date: December 20, 2019 Supervising Physician Co-Signing Physician Notes I personally evaluated the patient and agree with the findings as documented by LETA Oreilly Exam: abd: soft, moderate epigastric tenderness, nd improving, tolerating low residue diet. continue to advance diet as tolerated. can follow up with GI as an outpatient. Subjective Patient is status post biliary ultrasound which demonstrated a normal CBD. +hepatic fatty change. Reports improved back pain. Rates 5/10 at present. Resolved nausea. Denies abdominal pain. Reports softer abdomen and improved bloating. Passing flatus. No bm. Denies any current CP or SOB. No fevers. Labs reviewed today. No leukocytosis or anemia. Review of Systems Review of Systems: All systems reviewed & are unremarkable except as noted in HPI & below Physical Exam Constitutional: WD/WN, vitals as above well developed and well nourished Eyes: EOM intact bilaterally Neck: normal visual inspection Respiratory: normal respiratory effort, lungs clear to auscultation Cardiovascular: Rate/Rhythm: regular rate and regular rhythm Gastrointestinal (Abdomen): Inspection/Auscultation: normal bowel sounds; abdomen not distended Percussion/Palpation: abdomen soft; abdomen nontender Musculoskeletal: Extremities: extremities normal to inspection Skin: no rashes, warm and dry Psychiatric: A+Ox3, euthymic affect Results & Data Results & Data ([facility]) Vital Signs (Past 12 Hours) Vital Signs Temp Pulse Resp BP Pulse Ox 12/20/19 23:07 37.0 C 73 16 139/86 95 Laboratory Results Abnormal lab results 12/20/19 12/20/19 12/20/19 Range/Units 12:02 18:15 23:55 Chloride (98-107) mmol/L Glucose (70-99) mg/dl POC Glucose 154 H 112 H 114 H (70-99) mg/dl Calcium (8.5-10.1) mg/dl 12/21/19 12/21/19 12/21/19 Range/Units 05:20 05:59 08:41 Chloride 113 H (98-107) mmol/L Glucose 111 H (70-99) mg/dl POC Glucose 120 H 137 H (70-99) mg/dl Calcium 8.1 L (8.5-10.1) mg/dl PG Care Time/CCT Total # of Minutes Spent Total Time Spent with Patient: Total time spent is greater than 50% in coordination of care (as documented) at patient's floor/unit and/or counseling patient: Coding Level of Care Code 74773 Subseq Hosp Care Lvl 3 Diagnoses Acute pancreatitis K85.90 Acute pancreatitis complication: no infection or necrosis Pancreatitis type: unspecified pancreatitis type (1) Acute pancreatitis Acute pancreatitis complication: no infection or necrosis Pancreatitis type: unspecified pancreatitis type Qualified Code(s): K85.90 - Acute pancreatitis without necrosis or infection, unspecified
[2019-12-21] MEDS: BuPROPion XL 150 MG TABCR PO SCH (10:17)
[2019-12-21] MEDS: ENOXAPARIN INJ 40 MG/0.4 ML SYR SQ SCH (10:17)
[2019-12-21] MEDS ORDERED: POLYETHYLENE (MIRALAX) 17 GM PACK PO ONE (12:15)
--- NOTE | 2019-12-21 13:08 | Medical Student Progress Note ---
Date of Service December 21, 2019 Assessment & Plan (1) Acute pancreatitis: 64F, Hx of DM, HTN, HLD, hyperPTH, cholecystectomy admitted for management of acute pancreatitis (1) acute pancreatitis lipase elevated @ 613 CT findings of fat stranding at pancreatic head hx of cholecystectomy TG elevated @ 218 but not high enough to be etiology for pancreatitis Hx of hyperPTH but normal Ca no recent change in medications or diet no concern of alcohol abuse US showed no post-cholecystectomy remnants etio likely idiopathic pancreatitis d/c maintainence fluid start low fat soft diet CMP + Mg qAM to monitor Ca, Mg levels continue zofran 4mg IV q6H PRN for n/v d/c famotidine monitor i/o (2) pain control d/c hydromorphone acetaminophen 650mg PO q4h PRN for pain/fever Toradol 15mg IV q6H PRN if pain not controlled with acetaminophen (3) acute ileus on chronic constipation normal bowel movement about 1 stool per week before acute pancreatitis concern for acute ileus associated with acute pancreatitis on top of exacerbation of chronic constipation with hydromorphone miralax 17gm PO TID (4) MDD, anxiety, fibromyalgia continue home bupropion, duloxetine (5) HTN permissive HTN up to 180/110 during admission for pancreatitis hold home lisinopril, aspirin for now (6) hyperglycemia insulin sliding scale (7) HLD consider starting statin outpatient following discharge given elevated TG and total chol (8) DVT ppx Lovenox 40mg SQ qAM Acute pancreatitis complication: no infection or necrosis Pancreatitis type: unspecified pancreatitis type Qualified Code(s): K85.90 - Acute pancreatitis without necrosis or infection, unspecified Admission and Anticipated Discharge Date Admission Date: December 20, 2019 Supervising Attestation I personally examined the patient and verified all mendiola points of history and exam, discussed case, and agree with decision making with Selma Meredith MS3. doing much better eating well no BM also notes chronically about once a week BM range constipation at home vitals noted nad heent nc at mmm breathing unlabored no accessory muscles good effort skin no rashes no pallor or icterus neuro no focal deficits abd soft nd essentially NT as well acute idiopathic pancreatitis - no EtOH, no GB (and nothing appearing obstructive on labs/imaging), TGs mildly elevated but certainly not in range to be culprit (likewise w A1c). fluids, supportive care, advanced diet, improving chronic constipation - concern on this being able to easily worsen given bad baseline and pancreatitis having high propensity to have secondary ileus or constipation - aggressive bowel regimen DVT proph - [place] Subjective 64 y/o F admitted for management of acute pancreatitis. Since d/c hydromorphone, she continues to have some back pain but much less than initial presentation, manageable with acetaminophen and toradol. Lower bilateral abdominal discomfort has improved but has not fully resolved, and she has been passing gas, but has not yet passed any stool. She has a hx of chronic constipation most of her life, with baseline of 1 stool movement per week. She has been having increased urination on fluids, but otherwise no SOB, no orthopnea, no c/p, no palpitat ions, no n/v. She had some eggs and juice this morning and was able to tolerate without pain or n/v. Review of Systems Review of Systems: All systems reviewed & are unremarkable except as noted in Subjective Physical Exam Physical Exam: constitutional: afebrile, NAD, alert and oriented, anictric cardio: regular rate, systolic murmur 2/6, no rubs/gallops, normal s1 s2, normal WOB HEENT: negative [place] pulm: LCA bilat, no wheezes/rales/rhonchi abd: obese abdomen, no periumbilical/flank bruising, normal BS, soft, slight distension, some TTP @ LUQ and RUQ but no rebound, no guarding Results & Data ([facility]) Vital Signs (Past 12 Hours) Vital Signs Temp Pulse Resp BP Pulse Ox 12/21/19 09:56 36.7 C 68 16 160/89 H 95
[2019-12-21] MEDS: POLYETHYLENE (MIRALAX) 17 GM PACK PO SCH ×2 (13:13→21:20)
[2019-12-21] MEDS ORDERED: Nursing to Pharmacy Communication SCH (16:45)
--- NOTE | 2019-12-21 20:19 | Billing Data ---
Date of Service December 21, 2019 Coding Level of Care Code 73312 Subseq Hosp Care Lvl 3
[2019-12-22 06:16] LABS: Basophils # (auto) 0.02 K/uL (0-0.2); Basophils % (auto) 0.3 %; Eosinophils # (auto) 0.25 K/uL (0-0.5); Eosinophils % (auto) 3.3 %; Hematocrit (blood only) 39.4 % (37-47); Hemoglobin 12.8 g/dL (12.0-16.0); Immature Granulocytes # (auto) 0.02 K/uL (0.00-0.02); Immature Granulocytes % (auto) 0.3 %; Lymphocytes # (auto) 2.84 K/uL (1.2-3.4); Lymphocytes % (auto) 37.5 %; Mean Corpuscular Hemoglobin 27.6 pg (25-34); Mean Corpuscular Hgb Conc 32.5 g/dL (32-36); Mean Corpuscular Volume 84.9 fL (80-100); Mean Platelet Volume 9.8 fL (7.4-10.4); Monocytes # (auto) 0.34 K/uL (0.11-0.59); Monocytes % (auto) 4.5 %; Neutrophils % (auto) 54.1 %; Platelet Count 331 K/uL (130-400); RDW Coefficient of Variation 13.2 % (11.5-14.5); RDW Standard Deviation 40.4 fL (36.4-46.3); Red Blood Count 4.64 M/uL (4.2-5.4); White Blood Count 7.57 K/uL (4.8-10.8)
[2019-12-22] MEDS: CYANOCOBALAMIN 500 MCG TABLET (VITAMIN B-12) PO SCH (08:42)
[2019-12-22] MEDS: BuPROPion XL 150 MG TABCR PO SCH (08:42)
[2019-12-22] MEDS: DULOXETINE HCL 30 MG CAP PO SCH (08:42)
[2019-12-22] MEDS: ENOXAPARIN INJ 40 MG/0.4 ML SYR SQ SCH (08:43)
[2019-12-22] MEDS: POLYETHYLENE (MIRALAX) 17 GM PACK PO SCH (08:43)
[2019-12-22] MEDS: INSULIN ASPART 100 UNITS/ML 3 ML PEN SC SCH ×2 (08:45→12:54)
--- NOTE | 2019-12-22 13:15 | Med Student Discharge Summary ---
Date of Service December 22, 2019 Admission HPI Per Admitting Provider The patient is a 64-year-old female with a past medical history including depression with anxiety, solitary thyroid nodule, carpal tunnel syndrome, diabetes mellitus, fibromyalgia, hyperlipidemia, hyperparathyroidism, hypertension, multiple sclerosis, sleep apnea, small vessel cerebrovascular disease and vitamin D deficiency. She presents to the emergency department with acute onset of several hours of severe abdominal and back pain accompanied by nausea without vomiting. She of note did have a colonoscopy performed on 12/14/2019. She has not had any questionable food intake, has not had any recent travels or sick exposures. Admission Exam (Per Admitting) Constitutional HEENT: Head - normocephalic and atraumatic Pupils are equal, round, and reactive to light. Extraocular eye muscles are intact, and sclera are anicteric. Nose - moist nasal mucosa without discharge. Mouth - moist buccal mucosa. Oropharynx is nonerythematous and there is no tonsillar exudate or edema noted. Neck: Supple; no JVD, nuchal rigidity, cervical lymphadenopathy, or auscultated bruits. Heart: Regular rate and rhythm. There is a normal S1 and S2 with no murmurs, clicks, or gallops appreciated. Lungs: Clear to auscultation bilaterally with no wheezes, rales, or rhonchi. Abdomen: Soft, completely nontender, nondistended, with good bowel sounds. There are no palpable pulsatile masses or hepatosplenomegaly. There is no guarding, rigidity, or rebound noted. Extremities: No evidence of cyanosis, clubbing, or edema. There are easily palpable peripheral pulses. Skin: warm and dry with good turgor and no rashes. Discharge Data Consultations 12/20/19 05:38 ED Decision to Admit Stat 12/20/19 08:55 Consult Case Management - Discharge Planning Routine Consult Gastroenterology Routine 12/22/19 07:08 Consult Case Management - Discharge Planning Routine Hospital Course (1) Acute pancreatitis: Ms. Rebeca Franks is a 64 y/o F who came into our ED on 12/18 with acute onset epigastric pain radiating to the back. 12/19 day 1, Labs on admission showed elevated lipase and CT abd showed fat stranding, consistent with acute pancreatitis. She was started on aggressive IVF NS @ 200mL/hr, given IV hydromorphone 0.5mg q3h PRN for pain control, Zofran 4mg IV q6h prn for n/v, and placed on NPO only water and ice chips. Home meds for HTN, DM, MDD, anxiety, fibromyalgia were put on hold during her admission, and she was placed on sliding scale insulin for glucose control and lovenox 40mg sq qam for DVT ppx. 12/19 day 2, WBC had normalized, and her pain was improving so hydromorphone was discontinued and pain was managed with acetaminophen 650mg po q4h prn and toradol 15mg IV q6 prn, which were effective for pain control. There was concern for acute ileus/SBO on chronic constipation with increasing abdominal distension but Rebeca let us know her baseline constipation pattern is usually only 1 bowel movement per week, so we were reassured that there was no ileus/SBO as she did not have hyperactive bowel sounds, passing gas, and no nausea/vomiting. She only had minor discomfort in her back, no n/v, and expressed hunger so she was transitioned to low fat soft diet, which she tolerated without issue. IVF NS was discontinued by the end of the day. Miralax 34g po was administered but no bowel movement was achieved. 12/20 day 3, she no longer had any pain. She still has not passed any stool, with increasing abdominal distension, but shows no acute distress, passing gas, no hyperactive bowel sounds, tolerating meals since dinner of day 2. With toleration of eating without issue, no signs/symptoms of ileus/SBO, resolution of pain, she is ready for discharge by afternoon today 12/20. We instructed her to stick to a majority soft carb, low fat, low protein diet for about 1 week and gradually start including more protein, fat, fibers in her diet after that point, and to try OTC Miralax up to amounts that would induce bowel movement. She will follow up with her PCP. Discharge Plan Discharge Items Patient Disposition: Home - Self-Care Reason For Visit: PANCREATITIS Discharge Diagnosis: Acute Pancreatitis Activity: Per Instructions section Non-emergency contact: Primary Care Provider and [facility] Up Call non-emergency contact if: you have any medication questions, your symptoms worsen, your pain is not controlled and your temperature is above 101 Follow-up/Referrals: Yoni Lara MD [Primary Care Provider] - 12/28/19 11:00 am (Appointment is with Yazmin Barcenas PA-C. Please arrive 10 minutes early for appt. Call when you are in your car, and they will need your insurance information out.) Diet: Carb Consistent or DM2, Low Fiber and Low Fat Addtl Attending Provider Instructions: You were admitted to [facility] on 12/20/2019 for acute pancreatitis. Acute Pancreatitis: On admission, you were found to have blood levels and abdominal CT imaging that was consistent with acute pancreatitis. Some of the more common causes of pancreatitis are from chronic alcohol use, high fat/cholesterol in the blood, and a gallbladder stone that gets stuck in the pancreas, but you had none of these findings. Your pancreatitis is most likely idiopathic in origin, meaning that there was no clear, preventable cause of it. While you were in the hospital, you were initially kept off of a diet and given lots of IV fluids in order to flush out the pancreas, in addition to pain management with Tylenol, Toradol, and Dilaudid, which is the standard methodology to improve a case of acute pancreatitis. GI was also consulted for your case and agreed with advancing your diet after your first day in the hospital, given that your abdominal pain and back pain quickly improved with IV fluids. You will be discharged in good, stable condition on 12/22/2019. You should follow up with your PCP. Constipation: While you were hospitalized, you explained to us that you usually are constipated and have one large, hard stool once per week at home. We tried giving you Miralax, 3 standard doses, on 12/20 but you still did not have a bowel movement. We also got an abdominal X-ray that confirmed constipation and did not show any signs of blockage in your bowels. We recommend that you take 4-5 standard doses of [id number] Miralax after discharge, in order to get your bowels moving to have a bowel movement. You should also have close follow-up with your PCP for the chronic constipation. You should continue the remainder of your home medications as prescribed. Pending Studies at Discharge: No Stand-Alone Forms: [facility], Smoking Cessation Medications and DC Order Prescriptions: Continued lorazepam 0.5 mg tablet 0.5 mg PO TID PRN (Reason: anxiety) Qty: 90 RF: 0 cholecalciferol (vitamin D3) 5,000 unit capsule 5,000 units PO QAM Qty: 90 RF: 0 cyanocobalamin (vitamin B-12) 1,000 mcg tablet 1,000 mcg PO QAM Qty: 90 RF: 0 bupropion HCl 150 mg tablet extended release 24 hr 150 mg PO QAM Qty: 30 RF: 2 ibuprofen [Advil] 200 mg Tablet 400 mg PO UD RF: 0 aspirin [Adult Low Dose Aspirin] 81 mg tablet,delayed release (DR/EC) 81 mg PO QAM RF: 0 lisinopril 40 mg tablet 40 mg PO QAM RF: 0 duloxetine 30 mg capsule,delayed release(DR/EC) 30 mg PO QAM RF: 0 Discharge Orders: Discharge Order (Routine); Ordered 12/22/19 Ordered By: Vinny Lam/Other Patient Handouts: Soft Diet Ch Dc, Diet Clear Liquid Dc, Discharge Instructions Having a Full Liquid Diet Admission Data Admit Date/Time: 12/20/19 06:05 Attending Provider: Morales Jones Admit Provider: Dhiraj Williamson Primary Care Provider: Yoni Lara Other Providers: Dhiraj Williamson ; Blaine Freeman ; Vinny Padron Other Interventions: Discharge Summary Assessment (RN) Last Done: 12/22/19 11:46 Supervising Attestation I personally examined the patient and verified all mendiola points of history and exam, discussed case, and agree with decision making with P Im MS3 feeling better eating well would like to go home vitals noted nad heent nc at mmm breathing unlabored no accessory muscles walking w normal gait acute idiopathic pancreatitis - stable for home <30mins Resident Activity Tracking Resident Involvement: Resident Care Provided Care Provided: Adult Hospital Medicine
--- NOTE | 2019-12-22 19:27 | Billing Data ---
Date of Service December 22, 2019 Coding Level of Care Code D/C Day Management <30 mins
== END 2019-12-22 14:36 | disposition home or self-care (01) | DRG 439 ==
LOC: ED 03:11 → SUATTDRO 06:05 → 3N 06:05